=== PATIENT | male | born 1960 | race African-American/Black ===

== ENCOUNTER 2021-12-07 13:57 | Emergency (ER) | payer MEDICARE, SELFPAY ==
[2021-12-07] VITALS (15 sets, daily range): BP systolic 148–164; BP diastolic 86–97; PULSE 69–82; RESP 9–18; TEMP 36.1–36.7; O2SAT 96–100
--- NOTE | 2021-12-07 16:57 | ED.MALEGU ---
HPI - Male Genitourinary General Chief complaint: Urogenital-Male Stated complaint: urinary retention Time Seen by Provider: 12/07/21 16:40 Source: patient and family Mode of arrival: ambulatory History of Present Illness HPI Narrative: This is 61 year old male who presents for evaluation of urinary retention. Patient states he has been unable to urinate since 4 am this morning. He does not feel urge to urinate. Patient has been fasting for blood work. He denies abdominal pain, back pain, nausea, vomiting, dysuria or hematuria. He reports having issues with urinary retention several years ago. Related Data Allergies Allergy/AdvReac Type Severity Reaction Status Date / Time No Known Allergies Allergy Verified 12/07/21 14:13 Review of Systems Review of Systems: All systems reviewed & are unremarkable except as noted in HPI and below Constitutional: Constitutional: Denies chills and Denies fever(s) Cardiovascular: Cardiovascular: Denies chest pain Respiratory: Respiratory: Denies cough and Denies dyspnea Gastrointestinal: Gastrointestinal: Denies abdominal pain, Denies diarrhea, Denies nausea and Denies vomiting Genitourinary: Genitourinary: Reports oliguria and Denies urinary frequency [facility] Past Medical History Medical History (Updated 12/07/21 @ 18:35 by Camryn Corey MD) Cognitive impairment Diabetes mellitus Hyperlipidemia Hypertension Social History Social History (Updated 12/07/21 @ 17:00 by Camryn Corey MD) Smoking status: Never smoker Exam Const: General: no acute distress and alert Eyes: EOM: EOMs intact bilaterally Resp: Effort & Inspection: normal respiratory effort and no retractions Auscultation: clear to auscultation bilaterally Cardio: Rate: regular rate Rhythm: regular rhythm Heart sounds: no murmurs GI: Inspection: distended GI Palp: Yes Soft to palpation, No Tenderness to palpation present (GI) and No Guarding due to palpation present (GI) Auscultation: normal bowel sounds Neuro: General: patient oriented x3 and moves all extremities Psych: Mental Status: mental status grossly normal Affect: normal affect Course Reevaluation(s) Reevaluation #1: Patient has not eaten and drank anything today which can account for why he has not urinated since this morning. HE was only found to have 125 ml in bladder so he has not have UTI symptoms. Nursing unable to straight cath. LAbs are normal. Patient will be discharged . Date: 12/07/21 Time: 18:32 Vital Signs Vital signs: Vital Signs Temperature 97.0 F L 12/07/21 14:08 Pulse Rate 82 12/07/21 14:08 Respiratory Rate 16 12/07/21 14:08 Blood Pressure 153/86 H 12/07/21 14:08 Pulse Oximetry 96 12/07/21 14:08 Temperature 98.1 F 12/07/21 18:57 Pulse Rate 78 12/07/21 18:57 Respiratory Rate 14 12/07/21 18:57 Blood Pressure 159/91 H 12/07/21 18:57 Pulse Oximetry 100 12/07/21 18:57 MDM - Male Genitourinary Medical Records Attestation: I reviewed the patient's medical records. Lab Data Attestation: I reviewed the patient's lab results. Result diagrams: 12/07/21 17:12 12/07/21 17:12 Labs: Lab Results 12/07/21 12/07/21 Range/Units 17:12 17:12 WBC 9.4 (4.5-10.0) K/mm3 RBC 4.67 (4.6-6.20) M/mm3 Hgb 12.8 L (14.0-18.0) g/dL Hct 38.6 L (42.0-52.0) % MCV 82.7 (80-100) fl MCH 27.4 (26-34) pg MCHC 33.2 (32-36) g/dl RDW 14.7 H (11.5-14.5) % Plt Count 306 (150-375) k/mm3 MPV 10.3 (7.4-10.4) fl Immature Gran % (Auto) 0.4 (0-0.5) % Neut % (Auto) 57.7 (45.5-73.1) % Lymph % (Auto) 31.7 (18.3-44.2) % [place] % (Auto) 6.9 (2.6-8.5) % Eos % (Auto) 2.8 (0-4.4) % Baso % (Auto) 0.5 (0.2-1.2) % Lymph # (Auto) 2.98 (0.9-3.2) K/mm3 [place] # (Auto) 0.7 H (0.1-0.6) K/mm3 Eos # (Auto) 0.3 (0-0.3) K/mm3 Baso # (Auto) 0.1 (0.0-0.1) K/mm3 Abs Immat Gran (auto) 0.04 H (0.00-0.031) K
[2021-12-07 17:18] LABS: Basophils Absolute Auto 0.1 K/mm3 (0.0-0.1); Basophils Percent Auto 0.5 % (0.2-1.2); Eosinophils Absolute Auto 0.3 K/mm3 (0-0.3); Eosinophils Percent Auto 2.8 % (0-4.4); Hematocrit 38.6 % (42.0-52.0); Hemoglobin 12.8 g/dL (14.0-18.0); Immature Granulocyte Absolute 0.04 K/mm3 (0.00-0.031); Immature Granulocyte Percent A 0.4 % (0-0.5); Lymphocytes Absolute Auto 2.98 K/mm3 (0.9-3.2); Lymphocytes Percent Auto 31.7 % (18.3-44.2); Mean Corpuscular HGB Conc 33.2 g/dl (32-36); Mean Corpuscular Hemoglobin 27.4 pg (26-34); Mean Corpuscular Volume 82.7 fl (80-100); Mean Platelet Volume 10.3 fl (7.4-10.4); Monocytes Absolute Auto 0.7 K/mm3 (0.1-0.6); Monocytes Percent Auto 6.9 % (2.6-8.5); Neutrophils Absolute Auto 5.4 K/mm3 (1.3-6.7); Neutrophils Percent Auto 57.7 % (45.5-73.1); Platelet Count Result 306 k/mm3 (150-375); Red Blood Count 4.67 M/mm3 (4.6-6.20); Red Cell Distribution Width 14.7 % (11.5-14.5); White Blood Count 9.4 K/mm3 (4.5-10.0)
[2021-12-07 17:37] LABS: Alanine Aminotransferase 29 U/L (4-50); Albumin Level 4.6 g/dL (3.5-5.1); Alkaline Phosphatase 83 U/L (38-126); Anion Gap 9 mmol/L (8-16); Aspartate Amino Transferase 26 U/L (17-59); Bilirubin,Total 0.6 mg/dL (0.2-1.3); Blood Urea Nitrogen 12 mg/dL (9-20); Calcium 9.1 mg/dL (8.4-10.2); Carbon Dioxide 27 mmol/L (22-30); Chloride 105 mmol/L (98-107); Estimated CRCL calculation 79 ml/min; Estimated Glomerular Filt Rate > 60; Glucose 88 mg/dL (65-110); Potassium 3.9 mmol/L (3.4-5.0); Sodium 141 mmol/L (137-145)
--- NOTE | 2021-12-07 18:53 | PC.NURSE ---
Unable to obtain urine. Attempted 14f coude cath. EDP notiofied.
== END 2021-12-07 19:02 | disposition home or self-care (01) ==
PROVIDERS: Emergency Provider General Practice; PCP Emergency Medicine
DX: R33.9 Retention of urine, unspecified (principal); E11.9 Type 2 diabetes mellitus without complications; E78.5 Hyperlipidemia, unspecified; I10 Essential (primary) hypertension; R34 Anuria and oliguria
CPT/HCPCS: 36415; 80053; 85025; 99283

== ENCOUNTER 2021-12-15 08:40 | Outpatient (CLI) | payer MEDICARE, SELFPAY ==
--- NOTE | ~2021-12-15 | MR_ITS ---
EXAMINATION: MR brain/brain stem wo/w con EXAM DATE: 12/15/2021 11:18 INDICATION: Change in mental status. TECHNIQUE: Magnetic resonance imaging (MRI) of the brain/brain stem obtained without contrast. Sagit josué T1, axial diffusion, gradient echo (T2*), T1, T2, FLAIR sequences obtained. Patient was then inj ected with 19 cc intravenous Multihance contrast. Axial and coronal postcontrast T1 weighted sequence s obtained. There is no prior study for comparison. FINDINGS: There are no areas of restricted diffusion to suggest acute infarction. There is no acute hemorrhage seen on the T2*, a hemosiderin sensitive sequence. No intraparenchymal brain mass lesion. 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 There is moderate periventricular and subcortical T 2/FLAIR signal hyperintensity, nonspecific but probably related to small vessel ischemic disease (maya roangiopathy). There is mild prominence of the sulci and ventricles related to cerebral atrophy. There are no extra-axial collections. Flow voids are seen in the cerebral arteries on the T2-weighte d sequences consistent with their expected patency. The orbits are unremarkable. Soft tissue is unr emarkable. IMPRESSION: 1. No acute intracranial findings. 2. Chronic age related findings. Reviewed, dictated and finalized at location G.
== END 2021-12-15 08:41 | disposition home or self-care (01) ==
PROVIDERS: PCP Emergency Medicine; Visit Provider Emergency Medicine
DX: R41.82 Altered mental status, unspecified (principal)
CPT/HCPCS: 70553; A9577

== ENCOUNTER 2022-02-02 00:05 | Day surgery (SDC) | payer MEDICARE, MEDICAID, SELFPAY ==
[2022-01-20 14:44] VITALS: BMI 34.1
--- NOTE | 2022-02-01 15:01 | PC.NURSE ---
Spoke with pt mother, , regarding urological procedure tomorrow after GI procedure. Mother states pt is not going to take any medications in the morning and will not have any food or drink after midnight. Denies any questions at this time.
[2022-02-02] VITALS (13 sets, daily range): BP systolic 132–154; BP diastolic 70–93; PULSE 60–72; RESP 15–21; TEMP 36.2; O2SAT 95–100
--- NOTE | ~2022-02-02 | XR_ITS ---
EXAMINATION: XR urethrocystogram INDICATION: Ureteral dilation TECHNIQUE: Six intraoperative fluoroscopic images are submitted for review. Total fluoroscopic time w as 20.9 seconds COMPARISON: None available FINDINGS: Retrograde urethrogram demonstrates a stricture of the bulbar urethra. Subsequent images de monstrate manipulation of a ureteral scope. IMPRESSION: 1. Stricture of the bulbar urethra. Please refer to surgical note for full details. Reviewed, dictated and finalized at location A. IMPRESSION: 1. Stricture of the bulbar urethra. Please refer to surgical note for full deta ils.
--- NOTE | 2022-02-02 08:25 | ECG_ITS ---
Measurements Intervals [place] Rate: 69 P: 25 LA: 207 QRS: 221 QRSD: 101 T: 71 QT: 399 QTc: 430 Interpretive Statements SINUS RHYTHM RIGHT AXIS DEVIATION INCOMPLETE RIGHT BUNDLE BRANCH BLOCK POOR R WAVE PROGRESSION, ANTERIOR LEADS BORDERLINE T WAVE ABNORMALITY- HIGH LATERAL LEADS BORDERLINE ECG Electronically Signed On 02-02-2022 8:54:37 CDT by Benjamín Salinas D.O.
[2022-02-02] MEDS: LACTATED RINGERS 1,000 ML 150 ML IV CONT (09:10)
--- NOTE | 2022-02-02 09:17 | PM.HPGS ---
History of Present Illness History of Present Illness Consent: Risks, benefits, and alternatives have been discussed and questions answered. Patient agrees to proceed with procedure. Chief complaint: GERD, Dysphagia, Neoplasm screen, stricture, BPH Narrative: Jonathan Edmond is a 61 year old male with gerd on omeprazole, also choking after eating. Last colonoscopy 10 years ago. Review of Systems Constitutional: Constitutional: Denies headache(s) and Denies weakness Eyes: Eyes: Denies blurry vision ENT: Reports Normal hearing present, Denies headache(s) and Denies neck pain Cardiovascular: Cardiovascular: Denies chest pain and Denies dyspnea Respiratory: Respiratory: Denies dyspnea Gastrointestinal: Gastrointestinal: Reports no additional gastrointestinal complaints Genitourinary: Genitourinary: Denies dysuria Musculoskeletal: Musculoskeletal: Denies neck pain Integumentary/Breasts: Skin/Breast: Denies dry skin Neurologic: Reports Normal hearing present, Denies headache(s) and Denies weakness Psychiatric: Psychiatric: Denies anxiety Endocrine: Endocrine: Denies change in body appearance Hematologic/Lymphatic: Hematologic/Lymphatic: Denies easy bleeding Allergic/Immunologic: Allergic/Immunologic: Denies urticaria PMF Past Medical History Medical History (Updated 02/02/22 @ 09:18 by Dario Downs MD) Choking Cognitive impairment Colon cancer screening Diabetes mellitus Hyperlipidemia Hypertension Social History Social History (Updated 12/07/21 @ 17:00 by Camryn Corey MD) Smoking status: Never smoker Alcohol intake: never Substance use: never Substance use type: does not use Living arrangements: with family Additional living arrangements comments: MOTHER HELPS CARE FOR PT, PT HAS CAREGIVER 4HRS A DAY, 4 DAYS A WEEK Spiritual care concerns: No Meds Home Medications and Allergies Home Medications Medication Instructions Recorded Confirmed Type tamsulosin [Flomax] 0.4 mg PO DAILY #14 cap 12/07/21 01/20/22 Rx aspirin [Aspir-81] 81 mg PO DAILY 01/20/22 01/20/22 History atorvastatin 40 mg PO DAILY 01/20/22 01/20/22 History donepezil 5 mg PO DAILY 01/20/22 01/20/22 History losartan 100 mg PO DAILY 01/20/22 01/20/22 History metformin 500 mg PO DAILY 01/20/22 01/20/22 History omeprazole 20 mg PO DAILY 01/20/22 01/20/22 History sertraline 100 mg PO DAILY 01/20/22 01/20/22 History Allergies Allergy/AdvReac Type Severity Reaction Status Date / Time No Known Allergies Allergy Verified 02/02/22 08:47 Exam Const: General: comfortable and no acute distress HENMT: General nose exam: Normal nares present Eyes: General: appearance normal, both eyes and all related structures Neck: Neck: no JVD Resp: Auscultation: clear to auscultation bilaterally Cardio: Rate: regular rate Rhythm: regular rhythm GI: Inspection: non-distended GI Palp: Yes Soft to palpation Skin: General skin exam: normal color Neuro: General: gait normal Speech: normal speech Extrem: General: normal to inspection Psych: Mental Status: mental status grossly normal Assessment and Plan Assessment and plan (1) Choking: Code(s): T17.308A - Unspecified foreign body in larynx causing other injury, initial encounter Status: Acute Assessment and Plan: egd with bx, check if esophagitis, stricture, etc (2) Colon cancer screening: Code(s): Z12.11 - Encounter for screening for malignant neoplasm of colon Status: Acute Assessment and Plan: colonoscopy
--- NOTE | 2022-02-02 09:18 | P.PNAN_ITS ---
Anes - Initial Pre Proc Eval Procedure: Operation Date: 02/02/22 09:45 Proposed Procedures p Esophagogastroduodenoscopy & Screening Colonoscopy - Dario Yañez MD Operation Date: 02/02/22 15:30 Proposed Procedures p Cystoscopy, Bilateral Retrograde Pyelogram, Urethral Dilation - Jayson Perez MD Date/Time: 02/02/22 09:18 Surgeon: Dario Downs MD Pre Op Diagnosis: GERD, Dysphagia, Neoplasm screen, stricture, BPH Patient Data Age: 61 Gender: M Height: 1.68 m Weight: 94.7 kg Allergies Allergy/AdvReac Type Severity Reaction Status Date / Time No Known Allergies Allergy Verified 02/02/22 08:47 Home Medications Medication Instructions Recorded Confirmed Type tamsulosin [Flomax] 0.4 mg PO DAILY #14 cap 12/07/21 01/20/22 Rx aspirin [Aspir-81] 81 mg PO DAILY 01/20/22 01/20/22 History atorvastatin 40 mg PO DAILY 01/20/22 01/20/22 History donepezil 5 mg PO DAILY 01/20/22 01/20/22 History losartan 100 mg PO DAILY 01/20/22 01/20/22 History metformin 500 mg PO DAILY 01/20/22 01/20/22 History omeprazole 20 mg PO DAILY 01/20/22 01/20/22 History sertraline 100 mg PO DAILY 01/20/22 01/20/22 History Laboratory Tests 02/02/22 08:51 Sodium Pending Potassium Pending Chloride Pending Carbon Dioxide Pending Anion Gap Pending BUN Pending Creatinine Pending Estim Creat Clear Calc Pending Estimated GFR Pending Glucose Pending Calcium Pending Patient hx anesthesia problems: none Family hx anesthesia problems: none Results Review: All pre-operative results and documents have been reviewed as part of the pre-operative evaluation. [facility] Past Medical History Medical History (Updated 02/02/22 @ 09:18 by Dario Downs MD) Choking Cognitive impairment Colon cancer screening Diabetes mellitus Hyperlipidemia Hypertension Social History Social History (Updated 12/07/21 @ 17:00 by Camryn Corey MD) Smoking status: Never smoker Alcohol intake: never Substance use: never Substance use type: does not use Living arrangements: with family Additional living arrangements comments: MOTHER HELPS CARE FOR PT, PT HAS CAREGIVER 4HRS A DAY, 4 DAYS A WEEK Spiritual care concerns: No Anes - Eval Final PreProcedure Day of Procedure 02/02/22 09:18 Patient weight: obese Heart: regular rate and rhythm Lungs: clear to auscultation Airway: Mallampati scale class III Neurological: alert and oriented Last oral intake: >/= 8 hours ASA classification: III Emergent: no Anesthetic plan: proceed Anesthesia type and monitoring: general GIVS and LMA and standard monitoring Results Review: All pre-operative results and documents have been reviewed as part of the pre-operative evaluation. Informed Consent: The patient's anesthetic plan and its attendant risks and benefits were discussed with the patient/family/POA. Questions were solicited and answers provided to the satisfaction of the patient/family/POA.
--- NOTE | 2022-02-02 09:18 | SUR.PREOP ---
Patient belonging picked up by Viviana TUTTLE and brought to OR belongings locker
--- NOTE | 2022-02-02 09:25 | PM.IMHP ---
H&P: HPI History of Present Illness Date/Time: 02/02/22 09:25 Chief Complaint: Voiding dysfunction with urethral stricture Narrative: 61-year-old male who was having difficulty voiding. Has a history of what sounds to have been urethral dilation in the past. Presented to the office for evaluation. Cystoscopy revealed a bulbar urethral narrowing and patient now presents for definitive therapy. Review of Systems Review of Systems: All systems reviewed & are unremarkable except as noted in HPI and below PMFSH Past Medical History Medical History Choking Cognitive impairment Colon cancer screening Diabetes mellitus Hyperlipidemia Hypertension Social History Social History Smoking status: Never smoker Alcohol intake: never Substance use: never Substance use type: does not use Living arrangements: with family Additional living arrangements comments: MOTHER HELPS CARE FOR PT, PT HAS CAREGIVER 4HRS A DAY, 4 DAYS A WEEK Spiritual care concerns: No Meds Home Medications and Allergies Home Medications Medication Instructions Recorded Confirmed Type tamsulosin [Flomax] 0.4 mg PO DAILY #14 cap 12/07/21 01/20/22 Rx aspirin [Aspir-81] 81 mg PO DAILY 01/20/22 01/20/22 History atorvastatin 40 mg PO DAILY 01/20/22 01/20/22 History donepezil 5 mg PO DAILY 01/20/22 01/20/22 History losartan 100 mg PO DAILY 01/20/22 01/20/22 History metformin 500 mg PO DAILY 01/20/22 01/20/22 History omeprazole 20 mg PO DAILY 01/20/22 01/20/22 History sertraline 100 mg PO DAILY 01/20/22 01/20/22 History Allergies Allergy/AdvReac Type Severity Reaction Status Date / Time No Known Allergies Allergy Verified 02/02/22 08:47 Exam Const: General: cooperative and no acute distress Eyes: General: appearance normal, both eyes and all related structures Chest: Chest palpation & inspection: normal inspection of the chest Resp: Effort & Inspection: normal respiratory effort Cardio: Rate: regular rate Rhythm: regular rhythm Assessment and Plan Assessment and plan (1) Urethral stricture: Code(s): N35.919 - Unspecified urethral stricture, male, unspecified site Status: Acute Assessment and Plan: Patient will undergo retrograde urethrogram, urethral dilation, cystoscopy,
[2022-02-02 09:27] LABS: Anion Gap 9 mmol/L (8-16); Blood Urea Nitrogen 7 mg/dL (9-20); Calcium 9.6 mg/dL (8.4-10.2); Carbon Dioxide 27 mmol/L (22-30); Chloride 102 mmol/L (98-107); Estimated CRCL calculation 80 ml/min; Estimated Glomerular Filt Rate > 60; Glucose 111 mg/dL (65-110); Potassium 3.9 mmol/L (3.4-5.0); Sodium 138 mmol/L (137-145)
--- NOTE | 2022-02-02 09:27 | WPDHPUPDATE1 ---
History and Physical Update Update Date/Time: 02/02/22 09:27 History and Physical has been reviewed, including an updated exam of the patient. There are NO changes in the patient's condition. Risks, benefits, and alternatives have been discussed and questions answered. Patient agrees to proceed with procedure.
--- NOTE | 2022-02-02 09:37 | SUR.OPER ---
egd ended at 931 and colonscopy started at 936.
--- NOTE | 2022-02-02 10:10 | WPDHPUPDATE1 ---
History and Physical Update Update Date/Time: 02/02/22 10:10 History and Physical has been reviewed, including an updated exam of the patient. There are NO changes in the patient's condition. Risks, benefits, and alternatives have been discussed and questions answered. Patient agrees to proceed with procedure.
--- NOTE | 2022-02-02 10:14 | SUR.PHASEII ---
Pt to be taken to the OR for cystoscopy per stretcher.
--- NOTE | 2022-02-02 10:19 | WPDANESEFPP ---
Anes - Eval Final PreProcedure Day of Procedure 02/02/22 10:19 Patient weight: obese Heart: regular rate and rhythm Lungs: clear to auscultation Airway: Mallampati scale class III Neurological: alert and oriented Last oral intake: >/= 8 hours ASA classification: III Emergent: no Anesthetic plan: proceed Anesthesia type and monitoring: general LMA and standard monitoring Results Review: All pre-operative results and documents have been reviewed as part of the pre-operative evaluation. Informed Consent: The patient's anesthetic plan and its attendant risks and benefits were discussed with the patient/family/POA. Questions were solicited and answers provided to the satisfaction of the patient/family/POA.
--- NOTE | 2022-02-02 10:21 | SUR.PHASEII ---
Pt being transferred to OR per stretcher by BRIGIDO Ling.
[2022-02-02] MEDS: ceFAZolin SODIUM 1 GM VIAL 2 GM IV PUSH (10:38)
[2022-02-02] MEDS: LIDOCAINE HCL 2% GEL UROJET 10 ML PKG MUCOUS MEM (10:41)
--- NOTE | 2022-02-02 11:00 | W.PM.PROC2 ---
Procedure Note - Detailed Date of Procedure 02/02/22 Pre-op Diagnosis Urethral stricture Post-op Diagnosis Same Procedure Performed Patient is taken to the operative suite and correctly identified. Once anesthesia was obtained he was placed in dorsal lithotomy position and prepped and draped usual sterile fashion. Nineteen Vietnamese scope was inserted urethra. There is a stricture in the bulbar urethra which would not allow passage. At this point a retrograde urethrogram was performed using a 16 Vietnamese red rubber catheter. Contrast made its way into the bladder. We could not manipulate a guidewire into the bladder. At this point a flexible ureteral scope was used to traverse the bulbar urethral stricture. We were able to manipulate this up into the bladder. Guidewire was then placed. Using SphereUp urethral dilators we dilated up to 22 Vietnamese. Cystoscope was then inserted. He did have a fairly dense bulbar urethral stricture which extended down to the sphincter area. Prostate had minimal lateral lobes. The bladder itself had no tumors. Both ureteral orifices normal anatomic position. 2% viscous lidocaine was then inserted into the urethra. Eighteen [place] was then placed over the guidewire into the bladder. 10 cc were placed in the balloon. This was connected to gravity drainage. Patient is taken recovery stable condition. He will be discharged home with pain med and antibiotics sent to his pharmacy. Will plan on removing the Mcdonald catheter on Tuesday. Surgeon Jayson Perez MD Anesthesia General Description of Procedure See dictation under procedure Procedure performed was retrograde urethrogram, urethral dilation, cystoscopy, complex Mcdonald placement Drains Yes Packing No Pathology None sent Complications No immediate complications Condition Stable
[2022-02-02] MEDS: LACTATED RINGERS 1,000 ML 30 ML IV CONT (11:04)
[2022-02-02 11:15] LABS: Glucose Point of Care 86 mg/dl (65-105)
--- NOTE | 2022-02-02 12:43 | SUR.PHASEI ---
1205: SPOKE W/ PT'S MOTHER, AND MOHSEN PANIAGUA WHO IS ALSO THE PATIENTS MULTI SHARE PROGRAM COORDINATOR M-F UNTIL NOON. MOTHER WANTS PATIENT TO BE ADMITTED TO THE HOSPITAL OR TO A REHAB SETTING BECAUSE PT WILL BE DC'D WITH A CATHETER AND SHE STATES [SHE] CAN'T EMPTY [HIS]CATHETER . MOTHER ASSURED THAT PT WILL BE TAUGHT BASIC CATHETER CARE THAT HE CAN PERFORM, SUITED TO . HIS COGNITIVE IMPAIRMENT, HE IS ALREADY LIVING ALONE AND PERFORMS HIS OWN SELF CARE AT HOME. SPOKE TO MOHSEN PANIAGUA, WHO READILY VERBALIZED BASIC KNOWLEDGE OF EMPTYING LEG BAG AND CARE WITHOUT PROMPTING AND STATES SHE WOULD BE WILLING TO REINFORCE TEACHING DAILY SHE IS IN THE HOME BUT [SHE] NEEDS TO LEAVE AND IS OFF NOW . SHE WAS CONFIDENT THAT HER MOTHER, BYRON, WHO WAS GOING TO BE TRANSPORTATION HOME TODAY, WOULD BE WILLING TO BE PRESENT FOR TEACHING AND SHE COULD RELAY INFORMATION TO HER. PT IS A&OX3 DURING THESE CONVERATIONS IN PACU AND TEACHING OF CATHETER CARE HAS BEEN ONGOING IN THIS AREA SINCE WAKE UP. HE EXPRESSES THAT IS CONFIDENT HE CAN PERFORM CARE. PT WILL NEED CONTINUED TEACHING IN PHASE II BEFORE D'C TO RETURN-DEMONSTRATE CARE AND VERBALIZE UNDERSTANDING.
--- NOTE | 2022-02-02 14:25 | SUR.PHASEII ---
1400 - abdi catheter care demonstrated with pt. pt returned demonstration x3 without difficulty. pt's mother instructed with abdi catheter clip and how to emptying. verbalized understanding. pt also encouraged to continue with his pericare as normal once at home.
== END 2022-02-02 14:10 | disposition home or self-care (01) ==
PROVIDERS: Anesthesiology; Urology; PCP Emergency Medicine; Visit Provider Internal Medicine Gastroenterology
PROC: 0DJ08ZZ Inspection of Upper Intestinal Tract, Via Natural or Artificial Opening Endoscopic (ICD-10-PCS; CPT 43235; principal; 2022-02-02 09:45)
PROC: (CPT 52352; principal; 2022-02-02 15:30)
DX: N35.912 Unspecified bulbous urethral stricture, male (principal); Z12.11 Encounter for screening for malignant neoplasm of colon; D12.2 Benign neoplasm of ascending colon; K64.8 Other hemorrhoids; K21.9 Gastro-esophageal reflux disease without esophagitis; K44.9 Diaphragmatic hernia without obstruction or gangrene; K29.70 Gastritis, unspecified, without bleeding; R13.10 Dysphagia, unspecified; N40.0 Benign prostatic hyperplasia without lower urinary tract symptoms; I10 Essential (primary) hypertension; E11.9 Type 2 diabetes mellitus without complications; E78.5 Hyperlipidemia, unspecified; Z79.84 Long term (current) use of oral hypoglycemic drugs; Z79.82 Long term (current) use of aspirin; E66.9 Obesity, unspecified; Z68.33 Body mass index [BMI] 33.0-33.9, adult
CPT/HCPCS: 52281; 45380; 43239; 36415; 51610; 74450; 80048; 82948; 88305; 93005; C1769; J0690; J2001; J2405; J2704; J7120; Q9966

== ENCOUNTER 2022-06-01 08:48 | Outpatient (CLI) | payer MEDICARE, MEDICAID, SELFPAY ==
--- NOTE | 2022-06-01 10:41 | WPDNEUROLOGY ---
Neurology EEG Report General Information Date of Study: 06/01/22 TEST Routine EEG DIAGNOSIS Dementia CONDITION OF RECORDING Awake and Drowsy. Patient unable to relax and keep eyes from fluttering; constant eye movement artifact noted throughout tracing. EEG NUMBER [id number] CLINICAL HISTORY Patient states he has early onset dementia. He has been on meds for it about a year and his symptoms seem to be about the same as they were a year ago. EEG DESCRIPTION During the awake state with eyes closed the background consists of 8-9 Hz posterior dominant rhythm which attenuates appropriately with eye opening. The recording is continuous. No significant asymmetries of background activities are noted. With drowsiness there is was waxing and waning of the dominant rhythm with eventual replacement by a mixture of beta, alpha, and theta activity. The patient did not enter stage II sleep. There are no epileptiform discharges or seizures during this recording. Photic stimulation was performed which did not elicit any abnormal response. Significant portion of the EEG is obscured due to eye blink artifact due to eye fluttering especially in the frontal leads. The eye fluttering was did not have any epileptiform features on EEG. IMPRESSION This is a normal routine EEG recorded in awake and drowsy states, although obscured by significant eye blink artifact. There are no electrographic seizures identified, nor are there any epileptiform discharges. Please note that a normal EEG cannot exclude a seizure disorder. Clinical correlation is recommended.
== END 2022-06-01 08:49 | disposition home or self-care (01) ==
PROVIDERS: PCP Emergency Medicine; Visit Provider Psychiatry & Neurology Neurology
DX: F03.90 Unspecified dementia, unspecified severity, without behavioral disturbance, psychotic disturbance, mood disturbance, and anxiety (principal)
CPT/HCPCS: 95816

== ENCOUNTER 2025-01-14 10:48 | Outpatient (CLI) | payer MEDICARE, OTHER, SELFPAY ==
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
--- OUTSIDE RECORDS SUMMARY | 2025-01-14 12:50 | XMS_ITS | Data Portability ---
Author Organization [facility] HARESHJose Address [address] [place] [address] Care Team Providers Care Web Services Professional Name Role Phone NARGISPARIS Primary Care Provider Unavailabl e Assessment No assessment recorded. Plan of Treatment Reminders Order Date Submit Date Provider Last Modified By Organization Details Last Modified Time Details Appointments None recorded. Lab HbA1c (hemoglobi n A1c), blood 2020 021 In-Office Order, Internal Use Only DO Not Attach Compendium DO Not Attach Compendium, Do Not Delete/merge, [id number] 16:05:36 Referral physical therapist referral 2021 022 [email or web address] [facility], [address] [place] [address], [address], [place], [address], 16:02:33 gastroente rologist referral 2020 021 [email or web address] Not available 18:48:49 Procedures None recorded. Surgeries None recorded. [facility] [address] [place], [address], 2 11:20:16 CT, head, w/ contrast [facility] [address] [place], [address], 2 19:10:15 Medication Orders 8 Hour Pain Reliever 650 mg tablet,ext ended release 2021 022 [place] [address], [address], [address], [place], [place], [id number], 2 16:40:32 Tessalon Perles 100 mg capsule 2021 022 [place] [address], [address], [address], [place], [place], [id number], 2 16:40:33 albuterol sulfate HFA 90 mcg/actuat ion aerosol inhaler 2021 022 [place] [address], [address], [address], [place], [place], [id number], 16:40:32 Zithromax Z-John Paul 250 mg tablet 2020 021 [place] [address], [address], [address], [place], [place], [id number], 13:47:42 Mucinex 1,200 mg tablet, extended release 2020 021 [place] [address], [address], [address], [place], [place], [id number], 13:47:41 Tessalon Perles 100 mg capsule 2020 021 [place] [address], [address], [address], [place], [place], [id number], 1 13:47:42 ketoconazo le 2 % topical cream 2020 021 [place] [address], [address], [address], [place], [place], [id number], 10:53:46 aspirin 81 mg tablet,del ayed release 2020 [place] [address], [address], [address], [place], [place], [id number], 16:03:20 gabapentin 400 mg capsule 2020 [place] [address], [address], [address], [place], [place], [id number], 16:03:25 Mapap Arthritis Pain 650 mg tablet,ext ended release 2020 [place] [address], [address], [address], [place], [place], [id number], 16:03:23 metformin 500 mg tablet 2020 [place] [address], [address], [address], [place], [place], [id number], 16:03:19 hydralazin e 50 mg tablet 2020 [place] [address], [address], [address], [place], [place], [id number], 16:03:24 amlodipine 10 mg tablet 2020 [place] [address] [address], [address], [address], [place], [place], [id number], 16:03:22 losartan 50 mg tablet 2020 [place] [address], [address], [address], [place], [place], [id number], 16:03:26 atorvastat in 40 mg tablet 2020 [place] [address], [address], [address], [place], [place], [id number], 16:03:20 Fish Oil 340 mg-1,000 mg capsule 2020 [place] [address], [address], [address], [place], [place], [id number], 16:03:21 omeprazole 20 mg capsule,de layed release 2020 [place] [address], [address], [address], [place], [place], [id number], 16:03:22 ammonium lactate 12 % topical cream 2020 [place] [address], [address], [address], [place], [place], [id number], 10:24:49 Patient TargetsNo targets recorded. Patient Instructions Encounter Date Encounter Id Patient Instructions Last Modified By Organization Details Last Modified Time 02/09/2021 [id number] leg and ankle edema: care instructions fharry Not available 02/09/2021 10:24:20 toenail fungus: care instructions fharry Not available 02/09/2021 10:24:20 03/09/2021 [id number] A healthy lifestyle: care instructions Not available 03/09/2021 15:58:08 dash diet: care instructions Not available 03/09/2021 15:58:08 How To Lower Blood Pressure Not available 03/09/2021 15:58:08 04/29/2021 [id number] leg and ankle edema: care instructions fharry Not available 04/29/2021 10:53:20 toenail fungus: care instructions fharry Not available 04/29/2021 10:53:20 athlete's foot: care instructions fharry Not available 04/29/2021 10:53:20 10/28/2021 [id number] dash diet: care instructions Not available 10/28/2021 16:35:15 How To Lower Blood Pressure Not available 10/28/2021 16:35:15 Reason for Referral Hospitality Team Member Referral for Screening for malignant neoplasm of colon continuation of colon care Referring Physician: Paris Alexander [facility], Encounter Date: 03/09/2021 Physical Therapist Referral for Right hemiparesis Referring Physician: Paris Alexander [facility], Encounter Date: 10/28/2021 Results Created Date Observation Date Name Description Value Unit Range Abnormal Flag Note LastModifiedBy Organization Detail LastModifiedTime 03/09/20 21 03/09/2021 HbA1c (hemo globi n A1c), blood HbA1c 6.7 Not Available In-Office Order Internal Use Only DO Not Attach Compendium DO Not Attach Compendium, Do Not Delete/merge, [id number] 03/09/2021 15:28:24 Result Notes None recorded. Problems Name Problem SNOMED Code Status Onset Date Resolution Date Notes Provider Name and Address Organization Details Recorded Time Eczema 88240251 Active 2019 YAW VELA NP [address], [place], [address], [facility] 0 17:06:53 Dementia 11856424 Active 2019 YAW VELA NP [address] [place], [address], [place] [facility] 0 17:07:02 Hyperlipidemia 22761457 Active 2019 YAW VELA NP [address], [place], [address], [facility] 0 17:07:09 Essential hypertension 19237771 Active 2019 YAW VELA NP [address], [place], [address], [facility] 0 17:07:16 Gastroesophage al reflux disease without esophagitis 520698875 Active 2019 YAW VELA NP [address], [place], [address], [place] [facility] 0 17:07:24 Diabetes mellitus 70526719 Active 2019 Shirlene ALEX Valadez null, [place] - [facility] 0 12:17:05 Right hemiparesis 796137299 Active 2021 Paris Alexander MD Attn: Shari richard,[address] [place], [address], [place] [facility] 2 16:34:01 Problem Notes None recorded. Procedures Surgical History Date Name Laterality Status Provider Name and Address Organization Details Recorded Time 1 Routine Foot Care completed ALEKSANDER PEDRO, [place], [address], [place] [facility] 04/29/2021 10:00:31 1 Routine Foot Care completed ALEKSANDER PEDRO, [place], [address], [place] [facility] 02/09/2021 10:19:23 1 Routine Foot Care completed ALEKSANDER PEDRO, [place], [address], [place] [facility] 12/01/2020 10:47:32 0 Routine Foot Care completed ALEKSANDER PEDRO, [place], [address], [place] [facility] 08/15/2020 11:19:35 0 Routine Foot Care completed ALEKSANDER PEDRO, [place], [address], [place] [facility] 06/13/2020 16:43:30 operation on ganglion cyst completed MONROE PERERA, [place], [address], [place] [facility] 11/26/2019 10:13:40 incision and drainage completed MONROE PERERA, [place], [address], [place] [facility] 11/26/2019 10:14:08 Imaging Results None recorded. Procedure Notes None recorded. Medical Equipment None Reported. Allergies Allergen ID Allergen Name Allergen Category Reaction Reaction Severity Criticality Documentation Date Start Date Code Code System Note Provider Name and Address Organization Details Recorded Time 599855 lisinopri l medicatio n facial swelling moderate Not available 08/14/20192018 87499 RxNorm Not Available Not Available Not Available Medications Name Sig Start Date Stop Date Status Note LastModified by Organization Details LastModified Time multivita min tablet 05/12 completed Not Available Not Available Not Available losartan 50 mg tablet TAKE 1 TABLET BY MOUTH IN THE MORNING active Not Available Not Available No t Available amoxicill in 500 mg capsule 08/25 completed Not Available Not Available Not Available atorvasta tin 40 mg tablet TAKE 1 TABLET BY MOUTH EVERY EVENING active Not Available Not Available No t Available metformin 500 mg tablet TAKE 1 TABLET BY MOUTH TWICE A DAY active Not Available Not Available No t Available clonidine HCl 0.1 mg tablet TAKE 1 TABLET BY MOUTH TWICE A DAY 05/12 completed Not Available Not Available Not Available donepezil 5 mg tablet TAKE 1 TABLET BY MOUTH IN THE MORNING 2021 active Not Available Not Available Not Avai lable ammonium lactate 12 % lotion Apply 1 applicat ion twice a day by topical route. 12/23 completed Not Available Not Available Not Available cetirizin e 10 mg tablet TAKE 1 TABLET BY MOUTH IN THE MORNING 2020 active Not Available Not Available Not Avai lable azithromy clyde 250 mg tablet TAKE 2 TABLETS (500 MG) BY ORAL ROUTE ONCE DAILY FOR 1 DAY THEN 1 TABLET (250 MG) BY ORAL ROUTE ONCE DAILY FOR 4 DAYS active Not Available Not Available No t Available ibuprofen 800 mg tablet 12/23 completed Not Available Not Available Not Available fluconazo le 150 mg tablet 05/12 completed Not Available Not Available Not Available gabapenti n 400 mg capsule TAKE 1 CAPSULE BY MOUTH THREE TIMES A DAY WITH MEALS 2021 active Not Available Not Available Not Avai lable sertralin e 100 mg tablet TAKE 1 TABLET BY MOUTH IN THE MORNING active Not Available Not Available No t Available hydralazi ne 25 mg tablet Take 1 tablet twice a day by oral route as directed for 30 days. 04/29 completed Not Available Not Available Not Available amlodipin e 5 mg tablet Take 1 tablet every day by oral route in the morning for 30 days. 06/30 completed Not Available Not Available Not Available aspirin 81 mg tablet,de layed release TAKE 1 TABLET BY MOUTH DAILY active Not Available Not Available No t Available triamcino lone acetonide 0.1 % topical cream APPLY A THIN LAYER TO THE AFFECTED AREA(S) BY TOPICAL ROUTE 2 TIMES PER DAY 12/23 completed Not Available Not Available Not Available carbamaze pine 200 mg tablet 06/30 completed Not Available Not Available Not Available Tessalon Perles 100 mg capsule Take 1 capsule 3 times a day by oral route as directed for 15 days. 2021 active Not Available Not Available Not Avai lable amlodipin e 10 mg tablet TAKE 1 TABLET BY MOUTH DAILY 2021 active Not Available Not Available Not Avai lable promethaz ine 25 mg tablet 05/12 completed Not Available Not Available Not Available betametha sone dipropion ate 0.05 % topical cream APPLY A THIN LAYER TO THE AFFECTED AREA(S) BY TOPICAL ROUTE TWICE A DAY 05/12 completed using triamcin olone Not Available Not Available Not Available omeprazol e 20 mg capsule,d elayed release TAKE 1 CAPSULE BY MOUTH EVERY MORNING 2021 active Not Available Not Available Not Avai lable folic acid 1 mg tablet 05/12 completed Not Available Not Available Not Available ammonium lactate 12 % topical cream Apply 1 applicat ion twice a day by topical route for 30 days. 2020 active Not Available Not Available Not Avai lable bisacodyl 5 mg tablet,de layed release At 2:00 PM the day before the colonosc opy, take all 4 tablets of Dulcolax by mouth at one time with 8 ounces of water active Not Available Not Available No t Available hydralazi ne 50 mg tablet TAKE 1 TABLET BY MOUTH TWICE A DAY active Not Available Not Available No t Available alcohol swabs active Not Available Not Available Not Available hydrochlo rothiazid e 25 mg tablet 04/29 completed Not Available Not Available Not Available mirtazapi ne 15 mg tablet TAKE 1 TABLET BY MOUTH AT BEDTIME 05/17/ 2022 active Not Available Not Available Not Avai lable polyethyl prabhu glycol 3350 17 gram/dose oral powder In a pitcher, mix entire bottle of Miralax in one 64 ounce bottle of yellow, white or green Gatorade . Beginnin g at 5:00 PM the evening before the colonosc opy, drink 1 8-ounce glass every 15 minutes until complete d. Drink 4 glasses of water after finishin g this mixture active Not Available Not Available No t Available albuterol sulfate HFA 90 mcg/actua tion aerosol inhaler INHALE 2 PUFFS BY MOUTH EVERY FOUR HOURS DIRECTED active Not Available Not Available No t Available ketoconaz ole 2 % topical cream APPLY TO THE AFFECTED AREA(S) BY TOPICAL ROUTE ONCE DAILY active Not Available Not Available No t Available fluticaso ne propionat e 50 mcg/actua tion nasal spray,peri pension 05/12 completed Not Available Not Available Not Available sertralin e 50 mg tablet active Not Available Not Available Not Available metoclopr amide 10 mg tablet 05/12 completed Not Available Not Available Not Available hydroxyzi ne pamoate 25 mg capsule 05/12 completed Not Available Not Available Not Available azithromy clyde 500 mg tablet 04/29 completed Not Available Not Available Not Available 8 Hour Pain Reliever 650 mg tablet,ex tended release TAKE 2 TABLETS BY MOUTH EVERY 8 HOURS WITH MEALS 2021 active Not Available Not Available Not Avai lable Fish Oil 340 mg-1,000 mg capsule TAKE 1 CAPSULE BY MOUTH EVERY MORNING 2020 active Not Available Not Available Not Avai lable peg 3350 240 gram-elec trolytes 22.72 gram-6.72 g-5.84 g powdr for soln Beginnin g at 5:00 PM the night before the colonosc opy, drink 8 ounces every 15 minutes until gone. 12/23 completed Not Available Not Available Not Available Mucinex 1,200 mg tablet, extended release Take 1 tablet every day by oral route in the morning for 30 days. 2020 active Not Available Not Available Not Avai lable GaviLyte- G 236 gram-22.7 4 gram-6.74 gram-5.86 gram oral solution 05/22 completed Not Available Not Available Not Available OneTouch Verio test strips Take 1 strip every day by miscell. route in the morning for 100 days. active Not Available Not Available No t Available OneTouch Verio Flex Meter 06/02 completed Not Available Not Available Not Available Fish Oil 1,000 mg (120 mg-180 mg) capsule Take 1 capsule every day by oral route in the morning for 30 days. 04/29 completed Not Available Not Available Not Available [place] 200 mg-300 mg-100 mg-1,000 mg capsule TAKE 1 CAPSULE BY MOUTH EVERY MORNING 12/23 completed Not Available Not Available Not Available OneTouch Delica Plus Lancet 33 gauge active Not Available Not Available Not Available Vitals Date Recorded Body height Body mass index (BMI) Body weight Heart rate Body temperature Systolic blood pressure Diastolic blood pressure Provider Name and Address Organization Details Last Updated DateTime 1 165.1 cm 37 kg/m2 294103. 66 g 86 /min 97.7 [degF] 130 mm[Hg] 84 mm[Hg] Jhoana Myers LPN [place] - [facility] 1 10:00:49 Date Recorded Body height Body mass index (BMI) Body weight Oxygen saturation Oxygen saturation in Arterial blood by Pulse oximetry Heart rate Respiratory rate Body temperature Systolic blood pressure Diastolic blood pressure Provider Name and Address Organization Details Last Updated DateTime 1 165.1 cm 38 kg/m2 231888. 16 g 94 % 94 % 93 /min 18 /min 97.2 [degF] 136 mm[Hg] 82 mm[Hg] Shirlene Valadez [place] - [facility] 1 15:22:17 Date Recorded Body height Body mass index (BMI) Body weight Body temperature Pain severity - 0-10 verbal numeric rating [Score] - Reported Heart rate Systolic blood pressure Diastolic blood pressure Provider Name and Address Organization Details Last Updated DateTime 1 165.1 cm 36.8 kg/m2 090799. 63 g 97.5 [degF] 0 85 /min 138 mm[Hg] 90 mm[Hg] Jhoana Myers LPN [place] [facility] 09:51:18 Date Recorded Body height Provider Name an d Address Organization Details Last Updated DateTime 06/02/2021 165.1 cm Shirlene Valadez [place] - [facility] 021 13:27:21 Social History Question Answer Notes LastModified by Organizat ion Details LastModified Time Tobacco Smoking Status Former Smoker quit 1999 YAW VELA NP [address] [place], [address], [facility] 11/26/2019 10:12:34 Do You Have An Advance Directive? No Information not available 11/12/2020 What Is Your Level Of Alcohol Consumption? None Information not available 11/26/2019 Are You Blind Or Do You Have Difficulty Seeing? Yes GLASSES Information not available 03/09/2021 What Is Your Level Of Caffeine Consumption? Occasional Information not available 11/12/2020 How Much Tobacco Do You Chew? None Information not available 11/26/2019 In The 14 Days Before Symptom Onset, Have You Had Close Contact With A Laboratory-confir med COVID-19 While That Case Was Ill? No Information not available 11/12/2020 In The 14 Days Before Symptom Onset, Have You Had Close Contact With A Person Who Is Under Investigation For COVID-19 While That Person Was Ill? No Information not available 11/12/2020 Have You Been To An Area Known To Be High Risk For COVID-19? No Information not available 11/12/2020 Are You Currently Employed? No Information not available 11/12/2020 Are You Deaf Or Do You Have Serious Difficulty Hearing? No Information not available 03/09/2021 What Type Of Diet Are You Following? REGULAR Information not available 11/12/2020 Which Illicit Or Recreational Drugs Have You Used? Denies Information not available 11/26/2019 Do You Or Have You Ever Used E-cigarettes Or Vape? Never Used Electronic Cigarettes Information not available 08/14/2019 Are There Any Guns Present In Your Home? No Information not available 11/12/2020 Hard Of Hearing Or Deaf In One Or Both Ears? No Information not available 11/26/2019 Legally Blind In One Or Both Eyes? No Information no t available 11/26/2019 What Was The Date Of Your Most Recent Tobacco Screening? 12/23/2020 [email or web address] Information not available 12/23/2020 What Is Your Current Pack Years? 20-29packyear s Information not available 03/09/2021 What Is Your Relationship Status? Single Information not available 11/12/2020 Do You Use Your Seat Belt Or Car Seat Routinely? Yes Information not available 11/12/2020 Do You Have Smoke And Carbon Monoxide Detectors In Your Home? Yes Information not available 11/12/2020 At What Age Did You Start Smoking Tobacco? 17 Information not available 03/09/2021 Are You Passively Exposed To Smoke? No Information no t available 11/12/2020 Do You Or Have You Ever Used Smokeless Tobacco? Never Used Smokeless Tobacco Information not available 08/14/2019 How Much Tobacco Do You Smoke? No Information not available 08/14/2019 Do You Feel Stressed (tense, Restless, Nervous, Or Anxious, Or Unable To Sleep At Night)? [id number] Information not available 11/12/2020 Do You Use Any Illicit Or Recreational Drugs? No Information not available 11/12/2020 Do You Use Sunscreen Routinely? No Information not available 11/12/2020 Has Tobacco Cessation Counseling Been Provided? Yes Information not available 03/09/2021 On What Date Was Tobacco Cessation Counseling Provided? 08/14/2019 Information not available 08/14/2019 How Many Years Have You Smoked Tobacco? 10 Information not available 08/14/2019 Do You Or Have You Ever Used Any Other Forms Of Tobacco Or Nicotine? Yes Information not available 11/12/2020 Sex: Male Functional Status Question Answer Note LastModified by Organizat ion Details LastModified Time Are you able to care for yourself? No Information not available 11/12/2020 What is your exercise level? Occasional Information not available 11/12/2020 Mental Status None recorded. Family History Relationship Description Onset Age of this Age Resolved Age Notes LastModified by Organization Details LastModified Time Mother Essential hypertension [email or web address] Not available 10/2019 10:11:41 Father Myocardial infarction 50 rloar Not available 11/25 10:12:02 Medical History Condition Response Coronary Artery Disease N Gout N Other N Atrial Fibrillation N High Blood Pressure Y Kidney Stones N Hyperthyroidism N Hypothyroidism N Blood Clots N COPD N Depression N Diverticulitis/Diverticulosis N Anxiety Disorder N Muscle, Joint, or Bone Problems N Arthritis N Acid Reflux (GERD) Y Cancer N Stroke N ADHD N High Cholesterol N Liver Disease N Schizophrenia N Headaches N Kidney Disease N Thyroid Problems N Kidney or Bladder Problems N GI Problems N Eating Disorder N Skin Problems Y Osteoporosis/Osteopenia N Anemia N Colon Polyps Y Heart Attack ([place]) N Diabetes Y Bleeding Disorder N Seizures/Epilepsy N Tuberculosis N Hyperlipidemia Y Asthma N Allergies N Substance Abuse N Sleep Apnea N GERD/Reflux Y Hepatitis N Cirrhosis N Hypertension Y Heart Failure N Osteoporosis N Immunizations Vaccine Type Date Status Note Provider Nam e and Address Organization Details Recorded Time COVID-19, mRNA, LNP-S, PF, 100 mcg/0.5mL dose or 50 mcg/0.25mL dose 01/08/2021 completed Jarrett Quinonez RN null, [place] [facility] 01/08/2021 12:24:16 COVID-19, mRNA, LNP-S, PF, 100 mcg/0.5mL dose or 50 mcg/0.25mL dose 02/05/2021 completed Sharda Goodwin MA [facility], [place] - [facility] 02/05/2021 12:01:47 Past Encounters Encounter ID Performer Location Encounter Start Date Encounter Closed Date Diagnosis/Indication Diagnosis SNOMED-CT Code Diagnosis ICD10 Code Diagnosis Note [id number] Paris Alexander MD [address] [address] 08/14/2019 13:23:07 08/15/2019 09:05:39 Adult health examination 957362475 Z00.00 Essential hypertension 57487654 I10 Rhinitis 88818555 J00 Gastroesop hageal reflux disease without esophagitis 696535122 K21.9 [id number] Paris Alexander MD [address] [address] 11/06/2019 12:30:26 11/07/2019 08:19:03 Eczema 60864725 L30.9 Acute bronchitis 0034538 2 J20.9 Dementia 16135810 F03.90 aricept 5 mg daily, life modificati ons with pill box reminder, assistance at office visits and transportt ion Hyperlipidemia 95001987 E78.5 Essential hypertension 33588989 I10 Gastroesop hageal reflux disease without esophagitis 028538245 K21.9 [id number] YAW VELA NP [facility] [address] [place] [address] 11/26/2019 09:27:17 12/07/2019 08:27:07 Screening for malignant neoplasm of colon 828174320 Z12.11 History of colon polyps, unknown typeNo PMH or FH of cancer, including colon cancer Essential hypertension 79237744 I10 Adequately controlled Managed in primary care Gastroesop hageal reflux disease without esophagitis 808884669 K21.9 Adequately controlled Managed in primary care [id number] Paris Alexander MD [address] [address] 03/25/2020 15:02:23 03/26/2020 07:01:22 Essential hypertension 26504380 I10 uncontroll ed, will add hydralazin e 25 mg BID and cardiology evaluation . with 2 week follow up for BP readings. : BP kit ordered, staff to follow up and ensure delivery , referral to cardiologi st. Hyperlipidemia 23731452 E78.5 Dementia 27582758 F03.90 aricept 5 mg daily, life modificati ons with pill box reminder, assistance at office visits and transporta tion, seeing psychiatry Gastroesop hageal reflux disease without esophagitis 647757163 K21.9 Seasonal allergy 6286649 04 J30.2 Pain of le ft shoulder joint 2842288256 2140720 M25.715 [id number] Shirlene Valadez MA [address] [address] 04/29/2020 10:05:36 04/30/2020 07:01:32 Screening for malignant neoplasm of colon 583007191 Z12.11 reschedule d appt with gastroente rologistBryan. Type 2 courtney betes mellitus 88838523 E11.65 started on metformin, has 2 month supply, and will order glucometer . Essential hypertension 64561215 I10 Improved control, Today's Blood pressure is 134/82, seen by cardiologi st and BP meds are Amlodipion e and losartan only, D/c'd HCTZ. Clonidine, and Hydralazin e Osteoarthritis 656900867 M19.90 left shoulder, ordered Xray at [facility] and will continue tylenol arthritis, until results seen [id number] Paris Alexander MD [address] [address] 05/12/2020 10:15:38 05/13/2020 08:20:36 Type 2 diabetes mellitus 10295830 E11.65 started on metformin, has 2 month supply, and has home glucometer . labs reordered to [facility] and copy of request sent to facility. Pain of le ft shoulder joint 5172454378 0456094 M25.512 Essential hypertension 55148215 I10 Improved control, Today's Blood pressure is 127/76, seen by cardiologi and BP meds are Amlodipion e and losartan only, D/c'd HCTZ. Clonidine, and Hydralazin e.copy of med list and visit summary faxed to home facility Dementia 86740022 F03.90 aricept 5 mg daily, life modificati ons with pill box reminder, assistance at office visits and transporta tion, seeing psychiatry Screening for malignant neoplasm of colon 273783624 Z12.11 reschedule d appt with gastroente rologistBryan. Will hold off on Cologuard until after visit with gastroente rologist. Eczema 96981335 L30.9 [id number] GIRMA VALDIVIA DPM [facility] [address] [place] [address] 06/13/2020 14:44:59 06/16/2020 15:56:53 Neuropathy due to diabetes mellitus 331180518 E11.42 Bilateral atherosclerosis of arteries of lower limbs 2965655384 9776964 I70.203 Edema of l ower extremity 641076508 R60.0 Onychomycosis 656679117 B35.1 [place] - lesion 144081441 L84 Pain in left foot 032439 4390 02677 M79.894 [id number] YAW VELA NP [facility] [address] [place] [address] 06/30/2020 12:32:37 07/02/2020 08:35:22 Essential hypertension 37672630 I10 Adequately controlled Managed in primary care Gastroesop hageal reflux disease without esophagitis 491595964 K21.9 Adequately controlled Managed in primary care History of polyp of colon 017140263 Z86.010 Surveillan ce colonoscop yHistory of colon polyps, unknown typeNo PMH or FH of cancer, including colon cancerNo Cologuards due to history of colon polyps [id number] Paris Alexander MD [address] [address] 07/28/2020 10:04:14 07/29/2020 08:45:48 Diabetes mellitus 04625584 E13.65 PATIENT EDUCATED ON NEED FOR HEALTHY FOOD CHOICES, WILL SCHEDULE WITH WATCH GUARD GATE AND DIETITIAN . patient scheduled for in office annual exam in TIENT REFUSE INFLUENZA AND PNEUMOVAX HAS COMPLETED HIS DIABETIC FOOT EXAM AND EYE EXAM IS SCHEDULED PER NURSING STAFF. Essential hypertension 79510131 I10 Improved control, Today's Blood pressure is 137/85, seen by cardiologi and BP meds are Amlodipion e and losartan only, D/c'd HCTZ. Clonidine, and Hydralazin e.copy of med list and visit summary faxed to home facility Hyperlipidemia 08013299 E78.5 stable Pain of le ft shoulder joint 7177177685 9879548 M25.330 [id number] GIRMA VALDIVIA DPM [facility] [address] [place] [address] 08/15/2020 10:33:11 08/18/2020 11:50:20 Neuropathy due to diabetes mellitus 050316012 E11.42 Bilateral atherosclerosis of arteries of lower limbs 6433676180 9111874 I70.203 Edema of l ower extremity 126700096 R60.0 Onychomycosis 471389346 B35.1 [place] - lesion 664098216 L84 Pain in left foot 501879 0298 37554 M79.672 Acquired h ammer toe of left foot 7876444760 293439 M20.42 Acquired h ammer toe of right foot 1641051317 074336 M20.41 Xerosis du e to atopic dermatitis 680381649 L85.3 Anhidrosis 67330335 L74. 4 [id number] Clara Allison MD [facility] [address] [place] [address] 08/25/2020 14:57:00 08/25/2020 16:50:42 Type 2 diabetes mellitus without complication 696908696 E11.9 Occlusion of branch of retinal vein of right eye 499300356 H34.8312 [id number] GIRMA VALDIVIA DPM [facility] [address] [place] [address] 08/29/2020 11:17:20 08/29/2020 12:11:13 Neuropathy due to diabetes mellitus 773754186 E11.42 Bilateral atherosclerosis of arteries of lower limbs 8288555356 3138601 I70.203 Edema of l ower extremity 522627786 R60.0 Onychomycosis 529257373 B35.1 [place] - lesion 169756781 L84 Pain in left foot 205315 5411 73995 M79.672 Acquired h ammer toe of left foot 0651010147 208804 M20.42 Acquired h ammer toe of right foot 0961420855 218023 M20.41 Xerosis du e to atopic dermatitis 063088202 L85.3 Anhidrosis 73764617 L74. 4 [id number] GIRMA VALDIVIA DPM [facility] [address] [place] [address] 08/29/2020 12:37:01 09/01/2020 15:57:53 Neuropathy due to diabetes mellitus 067532599 E11.42 Bilateral atherosclerosis of arteries of lower limbs 5786243407 2245710 I70.203 Edema of l ower extremity 866251952 R60.0 Onychomycosis 170027570 B35.1 [place] - lesion 098759353 L84 Pain in left foot 098574 3446 89357 M79.672 Acquired h ammer toe of left foot 9016396292 964695 M20.42 Acquired h ammer toe of right foot 4132661552 634245 M20.41 Xerosis du e to atopic dermatitis 324808252 L85.3 Anhidrosis 07063512 L74. 4 [id number] Paris Alexander MD [address] [address] 11/12/2020 14:36:19 11/13/2020 10:10:32 Diabetes mellitus 50906972 E13.65 PATIENT EDUCATED ON NEED FOR HEALTHY FOOD CHOICES, WILL SCHEDULE WITH WATCH GUARD GATE AND DIETITIAN . patient scheduled for in office annual exam in NT REFUSE INFLUENZA AND PNEUMOVAX HAS COMPLETED HIS DIABETIC FOOT EXAM AND EYE EXAM . Dementia 45894025 F03.90 aricept 5 mg daily, life modificati ons with pill box reminder, assistance at office visits and transporta tion, seeing psychiatry Bilateral atherosclerosis of arteries of lower limbs 5536320638 6779211 I70.203 Essential hypertension 56147137 I10 UNCONTROLL ED, Today's Blood pressure is 160/99, seen by cardiologi and BP meds are AmlodipINE and losartan. RESTARTED HYDRALAZIN Ecopy of med list and visit summary faxed to home facility Pain of le ft shoulder joint 3163114215 3516677 M25.512 Hyperlipidemia 18773343 E78.5 stable [id number] GIRMA VALDIVIA DPM [facility] [address] [place] [address] 12/01/2020 10:15:36 12/02/2020 10:43:06 Neuropathy due to diabetes mellitus 017007328 E11.42 Bilateral atherosclerosis of arteries of lower limbs 7870337907 0409157 I70.203 Edema of l ower extremity 718060951 R60.0 Onychomycosis 386698402 B35.1 [place] - lesion 383607351 L84 Pain in left foot 145478 2616 53120 M79.672 Acquired h ammer toe of left foot 0477159234 684602 M20.42 Acquired h ammer toe of right foot 7120274472 371371 M20.41 Xerosis du e to atopic dermatitis 037901676 L85.3 Anhidrosis 96429054 L74. 4 [id number] YAW VELA NP [facility] [address] [place] [address] 12/23/2020 13:20:51 12/26/2020 12:54:08 History of polyp of colon 241716675 Z86.010 Surveillan ce colonoscop yHistory of colon polyps, unknown typeNo PMH or FH of cancer, including colon cancerNo Cologuards due to history of colon polyps Dementia 76971253 F03.90 On donepezil, mertazapin e, sertraline Diabetes mellitus 124114 09 E11.9 11/17/2020: A1C 6.6% Managed in primary care Taking metformin Essential hypertension 25347005 I10 Adequately controlled On amlodipine , hydralazin e, losartan Managed in primary care Gastroesop hageal reflux disease without esophagitis 003995495 K21.9 Adequately controlled Managed in primary care On omeprazole Hyperlipidemia 68332930 E78.5 Managed in primary care On atorvastat in [id number] Paris Alexander MD [address] [address] 12/31/2020 14:25:41 01/01/2021 14:24:44 Essential hypertension 04172523 I10 improved control Today's Blood pressure is 150/85 , seen by cardiologi and BP meds are AmlodipINE and losartan. RESTARTED HYDRALAZIN E copy of med list and visit summary faxed to home facility Type 2 courtney betes mellitus 39478528 E11.65 started on metformin, has 2 month supply, and has home glucometer . labs reordered to [facility] and copy of request sent to facility. -follow up in office in 2 months for annual in office exam Bilateral atherosclerosis of arteries of lower limbs 2099157392 2412538 I70.203 Hyperlipidemia 19601401 E78.5 stable Pain of le ft shoulder joint 6466266858 5663890 M25.512 Seasonal allergy 4136207 04 J30.2 [id number] Jarrett Quinonez RN [facility] [address] [place] [address] 01/08/2021 11:38:20 01/09/2021 10:54:43 Administration of SARS-CoV-2 antigen vaccine 163618467 Z23 [id number] Gaurav Norris [facility] [address] [place] [address] 02/05/2021 10:41:11 02/16/2021 18:23:17 Administration of SARS-CoV-2 antigen vaccine 960702479 Z23 [id number] GIRMA VALDIVIA DPM [facility] [address] [place] [address] 02/09/2021 09:35:41 02/11/2021 14:27:00 Neuropathy due to diabetes mellitus 595457032 E11.42 Bilateral atherosclerosis of arteries of lower limbs 0179337870 9256277 I70.203 Edema of l ower extremity 281062769 R60.0 Onychomycosis 536515633 B35.1 [place] - lesion 766193224 L84 Pain in left foot 268774 6204 06192 M79.672 Acquired h ammer toe of left foot 2782973948 412669 M20.42 Acquired h ammer toe of right foot 5976497838 379491 M20.41 Xerosis du e to atopic dermatitis 349519325 L85.3 Anhidrosis 44493128 L74. 4 [id number] Paris Alexander MD [address] [address] 03/09/2021 14:59:19 03/12/2021 09:58:05 Type 2 diabetes mellitus 31334720 E11.65 well controlled , HgA1c is 6.7 continue current meds Essential hypertension 08733731 I10 improved control Today's Blood pressure is 136/82 , seen by cardiologi and BP meds are AmlodipINE and losartan. RESTARTED HYDRALAZIN E Obesity 381073938 E66.9 Screening for malignant neoplasm of colon 619456976 Z12.11 reschedule d appt with gastroente rologistBryan. . Bilateral atherosclerosis of arteries of lower limbs 0151305098 0396723 I70.203 Hyperlipidemia 83429200 E78.5 stable Pain of le ft shoulder joint 0704812532 5283823 M25.391 [id number] GIRMA VALDIVIA DPM [facility] [address] [place] [address] 04/29/2021 08:43:30 04/29/2021 15:30:13 Neuropathy due to diabetes mellitus 386205183 E11.42 Bilateral atherosclerosis of arteries of lower limbs 3518461420 6235784 I70.203 Edema of l ower extremity 577440123 R60.0 Onychomycosis 040672925 B35.1 [place] - lesion 256083940 L84 Pain in left foot 089091 6868 34907 M79.672 Acquired h ammer toe of left foot 1043966467 351013 M20.42 Acquired h ammer toe of right foot 2608250672 713027 M20.41 Xerosis du e to atopic dermatitis 445496073 L85.3 Anhidrosis 93398238 L74. 4 Tinea pedis 7227543 B35. 3 [id number] Paris Alexander MD [address] [address] 06/02/2021 09:50:18 06/03/2021 20:21:44 Acute bronchitis 42223571 J20.9 [id number] Paris Alexander MD [address] [address] 10/28/2021 11:22:36 10/31/2021 13:45:28 Dysphagia 36050301 R13.10 Essential hypertension 58560675 I10 improved control Today's Blood pressure is 136/82 , seen by cardiologi and BP meds are AmlodipINE and losartan. RESTARTED HYDRALAZIN E Right hemiparesis 645600 009 G81.90 Mild inter mittent asthma 180195136 J45.20 Renewal of prescription 967154570 Z76.0 Acute bronchitis 3018398 2 J20.9 Health Concerns Section Related Observation LastModified by Organization Detai ls LastModified Time None Recorded Concern Status LastModified by Organization Details LastModified Time None Recorded Advance Directives Directive N: Payers Encounter Date Sequence Insurance Name Policy Number Policy Hamm Covered Member ID Hamm Member ID Guarantor Name 02/09/2021 1 [employer] (MEDICAID HMO) [id number] Unton Boarden [id number] Un[employer] 03/09/2021 1 [employer] (MEDICAID HMO) [id number] Unton Boarden [id number] Unton Boarden 04/29/2021 1 [facility] (MEDICAID H[facility]) [id number] Unton Boarden [id number] Unton Boarden 06/02/2021 1 [employer] [facility] (MEDICAID HMO) [id number] Unton Boarden [id number] Unton Boarden 10/28/2021 2 [place] WHEN MEDICARE OR MEDICARE REPLACEMENT PRIMARY) Unton Boarden [id number] Unton Boarden 10/28/2021 1 [place] Unton R [place]en [id number] Jonathan Edmond Notes Date Note Type Note Provider Name and Address Organization Details Recorded Time 02/09/2021 text/html Patient presents today for evaluation and treatment of nail deformities as well as generalized foot care. The patient states their nails are uncomfortable. The patient has been unable to provide self care due to the severe nature of the deformity and their medical condition(s). The patient is receiving medically necessary foot care in order to prevent further problems as well as to relieve irritation and discomfort. Patient relates a history of diabetes and cannot recall last blood glucose. GIRMA VALDIVIA DPM [address] [place], [address], [facility] [place] 02/09/2021 10:25:23 03/09/2021 text/html Patient is a 60 year old male with known developmental delay and hypertension with diabetes, He is taking all meds as directed and denies chest pain, dizziness or dyspnea Paris Alexander MD Attn: [address]ing[address] [place], [address], [facility] 03/09/2021 16:03:50 04/29/2021 text/html Patient presents today for evaluation and treatment of nail deformities as well as generalized foot care. The patient states their nails are uncomfortable. The patient has been unable to provide self care due to the severe nature of the deformity and their medical condition(s). The patient is receiving medically necessary foot care in order to prevent further problems as well as to relieve irritation and discomfort. Patient relates a history of diabetes and cannot recall last blood glucose. GIRMA VALDIVIA DPM [address] [place], [address], [facility] 04/29/2021 10:54:10 06/02/2021 text/html patient is a 60 year old male with cough and congestion and need meds. unable to take OTC meds. no fever and no loss of smell or taste and vacinnated against COVID Paris Alexander MD Attn: [address] [place], [address], [facility] 06/02/2021 13:47:06 10/28/2021 text/html patient is a 61 year old male with dementia with behavioral disturbance with known hypertension and noted increased weakness on right side with incontinence and dysphagia. symptoms have lasted 3 weeks. Paris Alexander MD Attn: Accounting[address] [place], [address], [place] [facility] 10/28/2021 16:40:23
--- OUTSIDE RECORDS SUMMARY | 2025-01-14 12:50 | XMS_ITS | CONTINUITY OF CARE DOCUMENT ---
Author Name stephany hammond Address Unknown Organization [facility] Address [address] [place] [address] Phone [phone] Care Team Providers Care Supervisor Spring Up Name Role Phone stephany hammond Unavailable Unavailable INSURANCE PROVIDERS Payer name Policy type / Coverage type Leon red green party ID [id number] PAY [id number]
--- OUTSIDE RECORDS SUMMARY | 2025-01-14 12:50 | XMS_ITS | Clinical Summary ---
Author Organization [facility] Address [address] [place] [address] Care Team Providers Care Ultimate Hoops Scoreboard Operator Name Role Phone Lesley Cagle MD Primary Care Provider [phone] Source Comments [facility],non-owned Affiliates and Associated Physician Practices is amultiple site organization consisting of ambulatory clinics and hospital sitesin [place], [place], [place] and [place]. This disclosure is being madepursuant to the Care Everywhere program and may not contain all information available regarding this patient. Last updated 18.[facility] Allergies No known active allergies Medications * Be aware that medications may not be up to date on this document. Alwaysverify current medications with the patient. hydrocodone-acet aminophen (NORCO) 5-325 MG tablet Take 1-2 Tabs by mouth every 4 hours as needed for Pain 30 Tab 0 09/15/2015 Active Social History Tobacco Use Types Packs/Day Years Used Date Smoking Tobacco: Former Cigarettes Q uit: 02/12/2015 Smokeless Tobacco: Never Alcohol Use Standard Drinks/Week Comments No 0 (1 standard drink = 0.6 oz pur e alcohol) Sex and Gender Information Value Date Recorded Sex Assigned at Not on file Legal Sex Male 11:34 AM TOOL AND DIE MACHINIST Gender Identity Not on file Sexual Orientation Not on file Last Filed Vital Signs Vital Sign Reading Time Taken Comments Blood Pressure 138/95 09/15/2015 12:01 PM TOOL AND DIE MACHINIST Pulse 81 09/15/2015 12:01 PM TOOL AND DIE MACHINIST Temperature 36.9 C (98.4 F) 09/15/2015 10:02 AM TOOL AND DIE MACHINIST Respiratory Rate 16 09/15/2015 12:01 PM TOOL AND DIE MACHINIST Oxygen Saturation 100% 09/15/2015 12:01 PM TOOL AND DIE MACHINIST Inhaled Oxygen Concentration - - Weight 93.4 kg (206 lb) 09/15/2015 10:02 AM TOOL AND DIE MACHINIST Height 165.1 cm (5' 5 ) 09/15/2015 10:02 AM TOOL AND DIE MACHINIST Body Mass Index 34.28 09/15/2015 10:02 AM TOOL AND DIE MACHINIST Plan of Treatment Health Maintenance Due Date Last Done Comments COLOGUARD (AGES 45-75) - COL ON CA SCREENING 1960 CT COLONOGRAPHY - COLON CA SCREENING 1960 FIT - COLON CA SCREENING 1960 FLEX SIG - COLON CA SCREENING 1959 LIPID TESTING 1959 HIV SCREENING 1974 HEPATITIS C SCREENING 09/30/1977 DTAP/TDAP/TD VACCINES (1 - Tdap) 1978 PNEUMOCOCCAL VACCINE 50+ (1 of 1 - PCV) 2009 ZOSTER VACCINE (1 of 2) 2009 COVID-19 VACCINE ( - 2023-2 5 season) 2024 DEPRESSION SCREENING 09/26/2024 AAA SCREENING 2024 INFLUENZA VACCINE (Season Ended) 2025 COLON MONITORING 08/27/2025 08/27/2015, 08/27/2015, 08/27/2015 COLONOSCOPY - COLON CA SCREENING 08/27/2025 08/27/2015, 08/27/2015, 08/27/2015 Colorectal Cancer Screening 08/27/2025 Respiratory Syncytial Virus (RSV) Vaccine Pt: or over 60 yrs (1 - 1-dose 75+ series) 2034 HEPATITIS B VACCINE Aged Out No longe r eligible based on patient's age to complete this topic HIB VACCINE Aged Out No longer eligi ble based on patient's age to complete this topic HPV VACCINE Aged Out No longer eligi ble based on patient's age to complete this topic MENINGOCOCCAL (Group B) VACCINE SHARED DECISION-MAKING Aged Out No longer eligible based on patient's age to complete this topic MENINGOCOCCAL GROUPS A/C/Y/W VACCINE Aged Out No longer eligible b ased on patient's age to complete this topic Procedures Procedure Name Priority Date/Time Associated Diagnosis Comments ENDOSCOPY, COLON, SCREENING Routine 08/27/2015 10:25 AM TOOL AND DIE MACHINIST from Last 3 Months or Most Recently Relevant to Health Maintenance Results * ENDOSCOPY, COLON, SCREENING (08/27/2015 10:25 AM TOOL AND DIE MACHINIST) Report Endoscopy POC _ Patient Name: Bryan Rodríguez Procedure Date: 08/27/2015 10:25 AM Date of : 1960 Admit Type: Outpatient Age: 54 Gender: Male Attending MD: Kal Peralta MD _ Procedure: Colonoscopy Indications: Screening for colorectal malignant neoplasm Providers: Kal Peralta MD (Doctor), Theresa Mc RN, Ritu Sharma, Tractor Expert Referring MD: Lesley Cagle MD (Referring MD) Medicines: Midazolam 5 mg IV, Meperidine 75 mg IV Complications: No immediate complications. _ Procedure: Pre-Anesthesia Assessment: - Prior to the procedure, a History and Physical was performed, and patient medications and allergies were reviewed. The patient is competent. The risks and benefits of the procedure and the sedation options and risks were discussed with the patient. All questions were answered and informed consent was obtained. Patient identification and proposed procedure were verified by the physician, the nurse and the mechanical maintenance technician in the procedure room. Mental Status Examination: alert and oriented. Airway Examination: normal oropharyngeal airway and neck mobility. Respiratory Examination: clear to auscultation. CV Examination: normal. Prophylactic Antibiotics: The patient does not require prophylactic antibiotics. Prior Anticoagulants: The patient has taken no previous anticoagulant or antiplatelet agents. ASA Grade Assessment: I - A normal, healthy patient. After reviewing the risks and benefits, the patient was deemed in satisfactory condition to undergo the procedure. The anesthesia plan was to use moderate sedation / analgesia (conscious sedation). Immediately prior to administration of medications, the patient was re-assessed for adequacy to receive sedatives. The heart rate, respiratory rate, oxygen saturations, blood pressure, adequacy of pulmonary ventilation, and response to care were monitored throughout the procedure. The physical status of the patient was re-assessed after the procedure. After I obtained informed consent, the scope was passed under direct vision. Throughout the procedure, the patient's blood pressure, pulse, and oxygen saturations were monitored continuously. The was introduced through the anus and advanced to the cecum, identified by appendiceal orifice and ileocecal valve. The colonoscopy was performed without difficulty. The patient tolerated the procedure well. The quality of the bowel preparation was good. Impression: - One 5 mm polyp in the sigmoid colon. Resected and retrieved. - The examination was otherwise normal on direct and retroflexion views. Findings: The perianal and digital rectal examinations were normal. Pertinent negatives include normal sphincter tone. A 5 mm polyp was found in the sigmoid colon. The polyp was sessile. The polyp was removed with a cold biopsy forceps. Resection and retrieval were complete. Verification of patient identification for the specimen was done. Estimated blood loss was minimal. The exam was otherwise without abnormality on direct and retroflexion views. _ Recommendation: - Discharge patient to home (ambulatory). - Continue present medications. - Repeat colonoscopy in 5 years for surveillance. - Return to primary care physician PRN. - Telephone my office for pathology results in 1 week. Procedure Code(s): --- Professional --- 26396, Colonoscopy, flexible; with biopsy, single or multiple --- Technical --- 88423, Colonoscopy, flexible; with biopsy, single or multiple Diagnosis Code(s): --- Professional --- Z12.11, Encounter for screening for malignant neoplasm of colon D12.5, Benign neoplasm of sigmoid colon --- Technical --- Z12.11, Encounter for screening for malignant neoplasm of colon D12.5, Benign neoplasm of sigmoid colon CPT copyright 2014 [employer]. All rights reserved. The codes documented in this report are preliminary and upon radiation oncology nurse review may be revised to meet current compliance requirements. Kal Peralta MD 08/27/2015 10:53:18 AM This report has been signed electronically. Number of Addenda: 0 Note Initiated On: 08/27/2015 10:25 AM [facility] END[facility] 08/27/2015 10:2 5 AM TOOL AND DIE MACHINIST Kal Peralta MD GI PROCEDURE ORDERABLES Edited Result - Final [facility] ENDOSCOPY from Last 3 Months or Most Recently Relevant to Health Maintenance Insurance [facility] [id number] Care Teams Ultimate Hoops Scoreboard Operator Relationship Specialty Start Date End Date Lesley Cagle MD PCP - General Family Medicine 08/25/15
--- OUTSIDE RECORDS SUMMARY | 2025-01-14 12:51 | XMS_ITS | Data Portability ---
Author Organization [facility] OFFICE Address [address] [place] [address] Care Team Providers Care Show Worker Name Role Phone PARIS BARILLAS Primary Care Provider [phone] Assessment No assessment recorded. Plan of Treatment Reminders Order Date Submit Date Provider Last Modified By Organization Details Last Modified Time Details Appointments None recorded. Lab None recorded. Referral None recorded. Procedures None recorded. Surgeries None recorded. Imaging None recorded. Medication Orders amlodipine 10 mg tablet 2019 020 EVAN [facility]00 011, [address] , [address], [id number], 0 03:34:49 losartan 50 mg tablet 2019 020 INTERFACE [facility]00 011, [address] , [address], [id number], 0 17:42:00 hydrochlor othiazide 25 mg tablet 2019 020 mzabad [facility]-00 011, [address] , Kishan [address] [place] [address], [id number], 0 11:54:39 losartan 50 mg tablet 2019 020 [facility]-00 011, [address] , [address], [id number], 0 19:34:00 Patient TargetsNo targets recorded. Patient InstructionsNo instructions recorded. Reason for Referral None Reported. Results Created Date Observation Date Name Description Value Unit Range Abnormal Flag Note LastModifiedBy Organization Detail LastModifiedTime 04/16/20 20 04/14/2020 panda jones am No observ ation record ed. [email or web address] Not Available 2019 11:36:17 06/23/20 20 06/13/2020 US, echoc ardio gram No observ ation record ed. [email or web address] Not Available 06/23 12:45:53 Result Notes None recorded. Problems Name Problem SNOMED Code Status Onset Date Resolution Date Notes Provider Name and Address Organization Details Recorded Time Essential hypertension 69462103 Active 2019 Miles Mesto [place], [place] - [facility] 0 13:36:03 Hyperlipidemia 75351638 Active 2019 [place] [facility] 0 13:36:03 Dementia 42924425 Active 2019 [place] [facility] 0 13:36:03 Seasonal allergy 970305699 Active 2019 Miles [place] [facility] 0 13:36:03 Shoulder pain 55878461 Active 2019 left Miles M[place] - [facility] 0 13:36:03 Gastroesophage al reflux disease without esophagitis 953307139 Active 2019 Miles [place] [facility] 0 13:36:03 Eczema 47113916 Active 2019 Miles [place] [facility] 0 13:36:03 Electrocardiog mendy abnormal 219149757 Active 2019 Miles Mesto [place] - [facility] 0 13:36:29 Problem Notes None recorded. Procedures Surgical History None recorded. Imaging Results Imaging Date Name Status LastModified by Organization Details LastModified Time 04/14/2020 electrocardiogram completed [email or web address] Informa tion not available 04/16/2020 11:36:17 06/13/2020 US, echocardiogram completed [email or web address] Inform ation not available 06/23/2020 12:45:53 Procedure Notes None recorded. Medical Equipment None Reported. Allergies Allergen ID Allergen Name Allergen Category Reaction Reaction Severity Criticality Documentation Date Start Date Code Code System Note Provider Name and Address Organization Details Recorded Time 20132 Librium medicatio n Not available Not available Not available 04/14/2020 3804 RxNorm Harini Chino [facility] 0 15:44:31 00136 lisinopri l medicatio n facial swelling moderate Not available 05/03/20202018 44590 RxNorm Ginger Farmer [facility] 0 13:35:46 Medications Name Sig Start Date Stop Date Status Note LastModified by Organization Details LastModified Time multivita min tablet active Not Available Not Available Not Available losartan 50 mg tablet TAKE 1 TABLET BY MOUTH DAILY active Not Available Not Available No t Available amoxicill in 500 mg capsule active Not Available Not Available Not Available atorvasta tin 40 mg tablet 1 tablet oncea day active Not Available Not Available No t Available metformin 500 mg tablet TAKE 1 TABLET BY MOUTH TWICE A DAY active Not Available Not Available No t Available clonidine HCl 0.1 mg tablet Take 1 tablet twice a day by oral route. 04/24 completed Pt is no more on thi medicati on 04/24/20 20 sm Not Available Not Available Not Available donepezil 5 mg tablet Take 1 tablet every day by oral route. active Not Available Not Available No t Available cetirizin e 10 mg tablet 1 tablet oncea day active Not Available Not Available No t Available ibuprofen 800 mg tablet active Not Available Not Available Not Available fluconazo le 150 mg tablet active Not Available Not Available Not Available gabapenti n 400 mg capsule active Not Available Not Available Not Available sertralin e 100 mg tablet Take 1.5 tablets every day by oral route. active Not Available Not Available No t Available Zithromax Z-John Paul 250 mg tablet TAKE 2 TABLETS (500 MG) BY ORAL ROUTE ONCE DAILY FOR 1 DAY THEN 1 TABLET (250 MG) BY ORAL ROUTE ONCE DAILY FOR 4 DAYS 11/25 completed Not Available Not Available Not Available hydralazi ne 25 mg tablet Take 1 tablet twice a day by oral route. 04/24 completed Pt is no more on this medicati on 04/24/20 20 sm Not Available Not Available Not Available amlodipin e 5 mg tablet Take 1 tablet every day by oral route. active Not Available Not Available No t Available aspirin 81 mg tablet,de layed release Take 1 tablet every day by oral route. active Not Available Not Available No t Available triamcino lone acetonide 0.1 % topical cream APPLY A THIN LAYER TO THE AFFECTED AREA(S) BY TOPICAL ROUTE 2 TIMES PER DAY 2019 active Not Available Not Available Not Avai lable carbamaze pine 200 mg tablet active Not Available Not Available No t Available amlodipin e 10 mg tablet Take 1 tablet every day by oral route. active Not Available Not Available No t Available promethaz ine 25 mg tablet active Not Available Not Available Not Available betametha sone dipropion ate 0.05 % topical cream APPLY A THIN LAYER TO THE AFFECTED AREA(S) BY TOPICAL ROUTE TWICE A DAY 11/04 completed Not Available Not Available Not Available omeprazol e 20 mg capsule,d elayed release Take 1 capsule every day by oral route in the morning for 30 days. active Not Available Not Available No t Available folic acid 1 mg tablet active Not Available Not Available Not Available hydralazi ne 50 mg tablet active Not Available Not Available Not Available alcohol swabs active Not Available Not Available Not Available hydrochlo rothiazid e 25 mg tablet Take 1 tablet every day by oral route. 06/20 completed Not Available Not Available Not Available mirtazapi ne 15 mg tablet Take 1 tablet every day by oral route at bedtime. active Not Available Not Available No t Available fluticaso ne propionat e 50 mcg/actua tion nasal spray,peri pension active Not Available Not Available Not Available sertralin e 50 mg tablet active Not Available Not Available Not Available metoclopr amide 10 mg tablet active Not Available Not Available No t Available hydroxyzi ne pamoate 25 mg capsule active Not Available Not Available Not Available Tylenol 650 mg tablet,ex tended release Take 2 tablets every 8 hours by oral route as needed. active Not Available Not Available No t Available Mapap Arthritis Pain 650 mg tablet,ex tended release Take 2 tablets every 8 hours by oral route with meals for 30 days. active Not Available Not Available No t Available azithromy clyde 500 mg tablet 11/04 completed Not Available Not Available Not Available Fish Oil 1000 capsule daily active Not Available Not Available No t Available triamcino lone (bulk) 0.1 % cream prn active Not Available Not Available No t Available Fish Oil 340 mg-1,000 mg capsule active Not Available Not Available Not Available peg 3350 240 gram-elec trolytes 22.72 gram-6.72 g-5.84 g powdr for soln Beginnin g at 5:00 PM the night before the colonosc opy, drink 8 ounces every 15 minutes until gone. active Not Available Not Available No t Available omeprazol e 20 mg tablet,de layed release Take 1 tablet every day by oral route. active Not Available Not Available No t Available GaviLyte- G 236 gram-22.7 4 gram-6.74 gram-5.86 gram oral solution active Not Available Not Available Not Available OneTouch Verio test strips active Not Available Not Available Not Available OneTouch Verio Flex Meter active Not Available Not Available Not Available Sea-Lawn 200 mg-300 mg-100 mg-1,000 mg capsule active Not Available Not Available Not Available OneTouch Delica Plus Lancet 33 gauge active Not Available Not Available Not Available Vitals Date Recorded Body height Body mass index (BMI) Body weight Heart rate Respiratory rate Oxygen saturation Oxygen saturation in Arterial blood by Pulse oximetry Systolic blood pressure Diastolic blood pressure Provider Name and Address Organization Details Last Updated DateTime 0 165.1 cm 34.4 kg/m2 49235.6 2 g 67 /min 18 /min 98 % 98 % 130 mm[Hg] 90 mm[Hg] Harini Chino [facility] 0 15:44:20 Date Recorded Body height Body mass index (BMI) Body weight Heart rate Respiratory rate Oxygen saturation Oxygen saturation in Arterial blood by Pulse oximetry Systolic blood pressure Diastolic blood pressure Provider Name and Address Organization Details Last Updated DateTime 0 165.1 cm 32.6 kg/m2 93851.1 g 68 /min 18 /min 98 % 98 % 130 mm[Hg] 90 mm[Hg] Katty Huang [facility] 0 14:37:45 Date Recorded Body height Body mass index (BMI) Body weight Heart rate Respiratory rate Oxygen saturation Oxygen saturation in Arterial blood by Pulse oximetry Systolic blood pressure Diastolic blood pressure Provider Name and Address Organization Details Last Updated DateTime 0 165.1 cm 33.3 kg/m2 90241.4 7 g 67 /min 18 /min 98 % 98 % 140 mm[Hg] 94 mm[Hg] Katty Huang [facility] 0 11:46:21 Social History Question Answer Notes LastModified by Organizat ion Details LastModified Time Tobacco Smoking Status Former Smoker Harini Chino [facility] 04/14/2020 15:37:36 What Is Your Level Of Alcohol Consumption? None [email or web address] Information not available 04/14/2020 What Is Your Level Of Caffeine Consumption? Occasional [email or web address] Information not available 04/14/2020 How Much Tobacco Do You Chew? None [email or web address] Information not available 04/14/2020 What Type Of Diet Are You Following? REGULAR [email or web address] Information not available 04/14/2020 Which Illicit Or Recreational Drugs Have You Used? History Of Crack Cocain Use 6 Years Ago [email or web address] Information not available 04/14/2020 Do You Or Have You Ever Used E-cigarettes Or Vape? Never Used Electronic Cigarettes [email or web address] Information not available 04/14/2020 Marital Status Single [email or web address] Informatio n not available 04/14/2020 How Many Children Do You Have? 0 [email or web address] Information not available 04/14/2020 Do You Or Have You Ever Used Smokeless Tobacco? Never Used Smokeless Tobacco [email or web address] Information not available 04/14/2020 How Much Tobacco Do You Smoke? 1 PPW [email or web address] Information not available 04/14/2020 How Many Years Have You Smoked Tobacco? 30 [email or web address] Information not available 04/14/2020 Sex: Unknown Functional Status Question Answer Note LastModified by Organization D etails LastModified Time What is your exercise level? None [email or web address] Information not available 04/14/2020 Mental Status None recorded. Family History Relationship Description Onset Age of this Age Resolved Age Notes LastModified by Organization Details LastModified Time Father No current problems or disability heart diseas e [email or web address] Not available 04/14/2020 15:49:47 Mother No current problems or disability [email or web address] Not available 03/27 15:49:41 Medical History Condition Response Hyperlipidemia Y GERD/Reflux Y High Cholesterol Y Hypertension Y Past Encounters Encounter ID Performer Location Encounter Start Date Encounter Closed Date Diagnosis/Indication Diagnosis SNOMED-CT Code Diagnosis ICD10 Code Diagnosis Note [id number] Nnamdi Choe [place] OFFICE [address] [place] [address] 04/14/2020 15:22:03 04/14/2020 19:33:18 Essential hypertension 06104862 I10 Will stop clonidine and hydralazin e as both are not first line BP medication s.start HCTZ 25 mg dailyStart Losartan 50 mg dailyConti nue Amlodipine Check 2D echocardio gram Hyperlipidemia 38658820 E78.5 Continue Atorvastat in Dementia 71537616 F03.90 ON donepezil. Consider neurology evaluation for reversible causes as he is too young to carry this diagnosis. Electrocar diogram abnormal 052712290 R94.31 right axis deviation. Check 2D echo [id number] Nnamdi Espinosa Office [address] [place] [address] 04/24/2020 14:20:09 04/24/2020 15:24:46 Essential hypertension 24481974 I10 He is dizzy since started on HCTZ and Losartan. + orthostati c BP changes today.Will d/c HCTZ. encouraged increase fluid intakeCont inue Losartan 50 mg dailyConti nue Amlodipine Follow 2D echo Hyperlipidemia 95690759 E78.5 Continue Atorvastat in Dementia 47499498 F03.90 ON donepezil. Consider neurology evaluation for reversible causes as he is too young to carry this diagnosis. Electrocar diogram abnormal 767935778 R94.31 right axis deviation. Check 2D echo Dizziness 668577770 R42 [id number] Nnamdi Espinosa Office [address] [place] [address] 06/20/2020 11:40:23 06/20/2020 12:04:11 Essential hypertension 74777303 I10 Need better controlInc rease amlodipine to 10 mg dailyConti nue Losartan 50 mg dailyHe did not tolerate HCTZ that caused him to have orthostati c dizziness Hyperlipidemia 01172255 E78.5 Continue Atorvastat in Dementia 88652056 F03.90 ON donepezil. Consider neurology evaluation for reversible causes as he is too young to carry this diagnosis. Electrocar diogram abnormal 230957827 R94.31 right axis deviation. 2D echo with MVP otherwise normal Dizziness 186047842 R42 Health Concerns Section Related Observation LastModified by Organization Detai ls LastModified Time None Recorded Concern Status LastModified by Organization Details LastModified Time None Recorded Advance Directives Directive None Recorded Payers Encounter Date Sequence Insurance Name Policy Number Policy Hamm Covered Member ID Hamm Member ID Guarantor Name 04/14/2020 1 [facility] (MEDICA[facility]) [id number] [place] [employer] [id number] [facility] 04/24/2020 1 [facility] (MEDICAID HMO) [id number] [place] [id number] [facility]/2020 1 [facility] (MEDICAID HMO) [id number] [place] [employer] [id number] [facility] Board Notes Date Note Type Note Provider Name and Address Organization Details Recorded Time 04/14/2020 text/html 59 year-old man with history of HTN and HLD presents for cardiac consultation He has early onset dementia and resides already in assisted living. His BP has been difficult to control. Hydralazine was added recently to his regimen. He was referred for BP management. No chest pain. Denies shortness of breath at rest. Denies dyspnea on exertion. No orthopnea. No PNDs. Denies heart palpitations. Denies dizziness. Denies syncope. No near syncope. No ankle or leg edema. No major bleeding events. No reported side effects from medications. Taking medications as prescribed with no missed doses. Patient has history of smoking for 30 years pt quit in 1999.Father has history of heart disease otherwise unknown. Nnamdi Choe [place], [place] - [facility] 04/14/2020 19:33:16 04/24/2020 text/html 04/24/20 59 year-old man with history of HTN and HLD presents for cardiac consultation for HTN He was seen recently and his antihypertensives were adjusted. He was taken off Hydralazine and Clonidine. Was started on HCTZ and Losartan. He has been dizzy since those changes and returns for follow up. Orthostatic BP check in the office today is positive. He has early onset dementia and resides already in assisted living. His BP has been difficult to control. Hydralazine was added recently to his regimen. He was referred for BP management. No chest pain. Denies shortness of breath at rest. Denies dyspnea on exertion. No orthopnea. No PNDs. Denies heart palpitations. Denies dizziness. Denies syncope. No near syncope. No ankle or leg edema. No major bleeding events. No reported side effects from medications. Taking medications as prescribed with no missed doses. Patient has history of smoking for 30 years pt quit in 1999.Father has history of heart disease otherwise unknown. Results from this visit, or from the past:04/14/20 EKG: Sinus rhythm. P: normal. QRS: extreme right superior axis deviation. Probable septal infarct. ST-T: normal. Conclusion: abnormal EKG Nnamdi Choe [facility] 04/24/2020 17:41:27 06/20/2020 text/html 04/24/20 59 year-old man with history of HTN and HLD presents for cardiac consultation for HTN During last visit he was dizzy with positive orthostatic BP changes. He was taken off HCTZ and feels much better since. His BP is borderline elevated today. He denies chest pain or dyspnea. Previously,He was taken off Hydralazine and Clonidine. Was started on HCTZ and Losartan. He has been dizzy since started taking HCTZ. . He has early onset dementia and resides already in assisted living. . He was referred for BP management. No chest pain. Denies shortness of breath at rest. Denies dyspnea on exertion. No orthopnea. No PNDs. Denies heart palpitations. Denies dizziness. Denies syncope. No near syncope. No ankle or leg edema. No major bleeding events. No reported side effects from medications. Taking medications as prescribed with no missed doses. Patient has history of smoking for 30 years pt quit in 1999.Father has history of heart disease otherwise unknown. Results from this visit, or from the past:04/14/20 EKG: Sinus rhythm. P: normal. QRS: extreme right superior axis deviation. Probable septal infarct. ST-T: normal. Conclusion: abnormal EKG Nnamdi Choe [facility] 06/20/2020 12:04:37
--- OUTSIDE RECORDS SUMMARY | 2025-01-14 12:51 | XMS_ITS | Continuity of Care Document ---
Author Organization [facility] Address [address] [place] [address] Phone Care Team Providers Care Oenologist Name Role Phone Pablo Jimenez MD Unavailable Unavailable Allergies, Adverse Reactions, Alerts Substance Reaction Status Criticality No Known Allergies Active No Inform ation Medications Medication Instructions Dosage Effective Dates (start - stop) Status Comments metformin ER 500 mg tablet,extended release 24hr (osmotic) take 2 Tablet by oral route every day with the evening meal 1000 MG - Active Protonix 40 mg tablet,delayed release take 1 tablet by oral route every day 40 MG - Active Crestor 40 mg tablet take 1 tablet by oral route every day 40 MG - Active glimepiride 1 mg tablet take 1 tablet by oral route every day 1 MG - Active donepezil 5 mg tablet take 1 tablet by oral route every day in the evening 5 MG - Active irbesartan 300 mg-hydrochlorothiaz violetta 12.5 mg tablet take 1 tablet by oral route every day 1.00 tablet - Active Norvasc 10 mg tablet take 1 tablet by oral route every day 10 MG - Active Remeron 30 mg tablet take 1 tablet by oral route every day before bedtime 30 MG - Active Zoloft 100 mg tablet take 1 tablet by oral route every day 100 MG - Active Ventolin HFA 90 mcg/actuation aerosol inhaler inhale 1 puff by inhalation route every 4 - 6 hours as needed as needed 1 puff - Active PRN for sob Aspirin Childrens 81 mg chewable tablet chew 1 tablet by oral route every day 81 MG - Active Procedures Procedure Date OFFICE/OUTPATIENT VISIT, EST OFFICE/OUTPATIENT VISIT, EST OFFICE/OUTPATIENT VISIT, EST OFFICE/OUTPATIENT VISIT, EST OFFICE/OUTPATIENT VISIT, EST OFFICE/OUTPATIENT VISIT, EST PREV VISIT, EST, AGE 40-64 OFFICE/OUTPATIENT VISIT, EST OFFICE/OUTPATIENT VISIT, EST OFFICE/OUTPATIENT VISIT, EST OFFICE/OUTPATIENT VISIT, EST OFFICE/OUTPATIENT VISIT, EST OFFICE/OUTPATIENT VISIT, EST OFFICE/OUTPATIENT VISIT, EST OFFICE/OUTPATIENT VISIT, EST OFFICE/OUTPATIENT VISIT, EST OFFICE/OUTPATIENT VISIT, EST OFFICE/OUTPATIENT VISIT, EST OFFICE/OUTPATIENT VISIT, EST PREV VISIT, NEW, AGE 40-64 OFFICE/OUTPATIENT VISIT, NEW Advance Directives Directive Yes / No Effective Date File Name No Information Encounters Encounter Description Practice Location Reason(s) For Visit Diagnoses Date Provider Providers Copied on Encounter OFFICE/OUTPA TIENT VISIT, EST [facility], [address] [place], [place], [address], tel:[phone] [facility] GERD1 (chief complaint) DM (chief complaint) HLP (chief complaint) memory loss1 (chief complaint) GERD w/o esophagitisMixed hyperlipidemiaType 2 diabetes mellitus with diabetic nephropathyMemory loss 4 Tony King [address] [place], [place], [address] , [place]. tel:[phone] [facility], [address] [place], [address], tel:[phone] [facility] No Information 4 Tony King [address] [place], [address] , [place]. tel:[phone] OFFICE/OUTPA TIENT VISIT, [facility], [place], [address], [place], [place], [address], [place] tel:[phone] [facility] anxiety1 (chief complaint) DM (chief complaint) GERD1 (chief complaint) HLP (chief complaint) HTN (chief complaint) dementia1 (chief complaint) Mixed hyperlipidemiaType 2 diabetes mellitus with diabetic nephropathyGERD w/o esophagitisEssentia l (primary) hypertensionGeneral ized Anxiety DisorderMemory loss Eren- 4 Jimenez Pablo. [address], [place], [place], [address] , [place]. [phone] OFFICE/OUTPA TIENT VISIT, [facility], [place], [address], [place], [place], [address], [place] tel:[phone] [facility] UTI1 (chief complaint) DM (chief complaint) HLP (chief complaint) weight gain1 (chief complaint) Mixed hyperlipidemiaType 2 diabetes mellitus with diabetic nephropathyMemory lossAbnormal weight gainBPH w/ lower urinary tract symptom Nov- 4 Jimenez Pablo. [address], [place], [place], [address] , [place]. [phone] OFFICE/OUTPA TIENT VISIT, [facility], [place], [address] [place], [address], [place] tel:[phone] [facility] UT1 (chief complaint) Acute cystitis without hematuria 4 Jimenez Pablo. [address], [place], [place], [address] , [place]. [phone] OFFICE/OUTPA TIENT VISIT, [facility], [place], [address], [place], [place], [address], [place] tel:[phone] [facility] DM (chief complaint) HLP (chief complaint) GERD1 (chief complaint) memory loss1 (chief complaint) sleep apnea1 (chief complaint) weight gain1 (chief complaint) Mixed hyperlipidemiaType 2 diabetes mellitus with diabetic nephropathyMemory lossGERD w/o esophagitisBPH w/ lower urinary tract symptomObstructive Sleep Apnea HypopneaImpacted cerumen, bilateral Dec- 3 Tony Shah. [address], [place], [place], [address] , [place]. [phone] OFFICE/OUTPA TIENT VISIT, EST [facility], [address], [place], [place], [address], [place] tel:[phone] [facility] memory loss1 (chief complaint) BPH1 (chief complaint) DM (chief complaint) sleep apnea1 (chief complaint) skin (chief complaint) Memory lossPrimary central sleep apneaBPH w/ lower urinary tract symptomType 2 diabetes mellitus with diabetic nephropathyOther hypertrophic disorders of the skin May- 3 Tony King [address], [place], [place], [address] , [place]. [phone] PREV VISIT, EST, AGE 40-64 [facility], [address], [place], [place], [address], [place] tel:[phone] [facility] physical (chief complaint) Encounter for general adult medical exam w abnormal findingsMixed hyperlipidemiaPrima ry central sleep apneaType 2 diabetes mellitus with diabetic nephropathyEssentia l (primary) hypertensionGERD w/o esophagitisMemory loss Eren- 3 Tony King [address], [place], [place], [address] , [place]. tel:[phone] OFFICE/OUTPA TIENT VISIT, EST [facility], [address], [place], [place], [address], [place] tel:[phone] [facility] DM (chief complaint) HLP (chief complaint) insomnia1 (chief complaint) anxiety1 (chief complaint) Mixed hyperlipidemiaType 2 diabetes mellitus with diabetic nephropathyPrimary insomniaGeneralized Anxiety DisorderPrimary central sleep apnea Dec- 3 Tony King [address], [place], [place], [address] , [place]. [phone] OFFICE/OUTPA TIENT VISIT, [facility], [place], [address], [place], [place], [address], [place] tel:[phone] [facility] HTN (chief complaint) HLP (chief complaint) DM (chief complaint) Mixed hyperlipidemiaEssen tial (primary) hypertensionPrimary central sleep apneaType 2 diabetes mellitus with diabetic nephropathy 3 Tony Shah. [address], [place], [place], [address] , [place]. tel:[phone] OFFICE/OUTPA TIENT VISIT, [facility], [place], [address], [place], [place], [address], [place] tel:[phone] [facility] HLP (chief complaint) HTN (chief complaint) GERD1 (chief complaint) sob1 (chief complaint) GERD w/o esophagitisMixed hyperlipidemiaEssen tial (primary) hypertensionMild intermittent asthma, uncomplicated 2 Tony Shah. [address], [place], [place], [address] , [place]. tel:[phone] OFFICE/OUTPA TIENT VISIT, [facility], [place], [address], [place], [place], [address], [place] tel:[phone] [facility] HTN (chief complaint) DM (chief complaint) HLP (chief complaint) sleep apnea1 (chief complaint) Primary central sleep apneaEssential (primary) hypertensionType 2 diabetes mellitus with diabetic nephropathyMixed hyperlipidemia 2 Tony Shah. [address], [place], [place], [address] , [place]. tel:[phone] OFFICE/OUTPA TIENT VISIT, [facility], [place], [address], [place], [place], [address], [place] tel:[phone] [facility] HTN (chief complaint) sleep apnea1 (chief complaint) sob (chief complaint) urethra stricture1 (chief complaint) Primary central sleep apneaPeriodic limb movement disorderEssential (primary) hypertensionBPH w/ lower urinary tract symptomDyspnea 2 Tony Shah. [address], [place], [place], [address] , [place]. tel:[phone] OFFICE/OUTPA TIENT VISIT, [facility], [place], [address] [place], [address], [place] tel:[phone] [facility] HTN (chief complaint) sleep apnea1 (chief complaint) toothache1 (chief complaint) Essential (primary) hypertensionAtypica l facial pain 2 Tony Shah. [address], [place], [place], [address] , [place]. tel:[phone] OFFICE/OUTPA TIENT VISIT, [facility], [place], [address] [place], [address], [place] tel:[phone] [facility] HTN (chief complaint) sleep apnea1 (chief complaint) Essential (primary) hypertensionPrimary central sleep apnea 2 Tony Shah. [address], [place], [place], [address] , [place]. tel:[phone] OFFICE/OUTPA TIENT VISIT, [facility], [place], [address] [place], [address], [place] tel:[phone] [facility] GERD1 (chief complaint) HTN (chief complaint) BPH 1 (chief complaint) anxiety1 (chief complaint) DM (chief complaint) HLP (chief complaint) Type 2 diabetes mellitus without complicationsMixed hyperlipidemiaBPH w/ lower urinary tract symptomEssential (primary) hypertensionMemory lossSleep apneaDysphagiaGener alized Anxiety DisorderPolyp of colon 2 Tony Shah. [address], [place], [place], [address] , [place]. tel:[phone] OFFICE/OUTPA TIENT VISIT, [facility], [place], [address], [place], [place], [address], [place] tel:[phone] [facility] anxiety1 (chief complaint) BPH1 (chief complaint) BPH w/o lower urinary tract symptomGeneralized Anxiety Disorder 2 Tony King [address], [place], [place], [address] , [place]. tel:[phone] OFFICE/OUTPA TIENT VISIT, [facility], [place], [address] [place], [place], [address], [place] tel:[phone] [facility] HTN (chief complaint) urine1 (chief complaint) sleep1 (chief complaint) shoulder pain1 (chief complaint) dysphgia1 (chief complaint) Essential (primary) hypertensionSleep apneaBPH w/ lower urinary tract symptomDysphagiaPai n in left shoulder Dec- 2 Tony Shah. [address], [place], [place], [address] , [place]. [phone] OFFICE/OUTPA TIENT VISIT, [facility], [place], [address] [place], [address], [place] tel:[phone] [facility] HLP (chief complaint) DM (chief complaint) urine retention1 (chief complaint) HTN (chief complaint) memory loss1 (chief complaint) Essential (primary) hypertensionHyperli pidemiaType 2 diabetes mellitus without complicationsRetent ion of urine, unspecifiedProteinu riaAnemiaMemory loss Nov-2 2 Tony Shah. [address], [place], [place], [address] , [place]. [phone] PREV VISIT, NEW, AGE 40-64 [facility], [address] [place], [place], [address], [place] [phone] [facility] memory1 (chief complaint) choking1 (chief complaint) Essential (primary) hypertensionDysphag iaAbnormalities of gaitMemory lossType 2 diabetes mellitus without complicationsHyperl ipidemiaEncounter for general adult medical exam w abnormal findingsGeneralized Anxiety Disorder Mar-0 2 Tony Shah. [address], [place], [place], [address] , [place]. [phone] Family History Family Member Type Diagnosis Age At Onset Sister Problem breast CA Father Problem of 57 heart disease Mother Problem Diabetes mellitus Brother Problem Alive and well Payers Payer name Insurance type Covered libertarian ID Authorarthur clay(s) No Information Social History Type Description Quantity Date Captured Comments Alcohol Use Details No Caffeine Use Details Unknown Tobacco Use Status Current non-smoker Smoking Status Never smoker Sex Male Vital Signs Date / Time: Height Weight BMI Pulse Rate Blood Pressure Temperature Respiratory Rate Body Surface Area Head Circumference BMI percentile Pulse Ox Inhaled Ox 11:02 AM 64.00 in 225.00 lbs 38.6 2 kg/m eter (2) 80 /min 126/72 mm[Hg] 98.0 F 16 /min Chief Complaint And Reason For Visit From encounter dated '06/11/2024 10:51'. GERD1 (chief complaint). Description: Pt has chronic GERD Pt takes protonix and doing ok Pt needs protonix refilled DM (chief complaint). Description: Pt has DM >Pt takes metformin and amaryl. Pt states thathis glucose is around 120s. Pt denies any polyuria, polydipsia HLP (chief complaint). Description: Pt has HLP. Pt takes crestor .Pt denies any myalgia. his lipid profile is ok memory loss1 (chief complaint). Description: Pt has chronic memory loss. Pt has ? history of TBI. Pt is seeing memory progressive care unit registered nurse now Pt is on aricept Plan Of Treatment Date Type Action Status Referral Ordered: Otolaryngology (related to Impacted cerumen, bilateral) ordered Referral Referred To: Yvonne GUSMAN, [address], [place], [id number] Ordered: Referrals: León Russell MD. Evaluate and treat ordered Referral Ordered: Neurosurgery (related to Memory loss) ordered Referral Ordered: Referrals: Neurosurgery. Evaluate and treat ordered Referral Ordered: SLEEP STUDY, ATTENDED ordered Referral Referred To: Reymundo Wilkerson [address] [facility] [address] [place] [address], [phone] Ordered: Referrals: Reymundo Wilkerson. Evaluate and treat ordered Referral Ordered: Jorge Robles -[facility] : Psychiatry & Neurology : Neurology (related to Memory loss) ordered Referral Ordered: Jorge Robles -Urology (related to Retention of urine, unspecified) ordered Referral Referred To: Jorge Robles [address] [place], [place], [id number] Ordered: Referrals: Urology. Jorge Robles. Evaluate and treat ordered Referral Referred To: Jorge Robles [address] [place], [place], [id number] Ordered: Referrals: Allopathic & Osteopathic Physicians : Psychiatry & Neurology : Neurology. Jorge Robles. Evaluate and treat ordered Referral Ordered: Otolaryngology (related to Dysphagia) ordered Referral Ordered: COLONOSCOPY AND BIOPSY ordered Referral Ordered: Referrals: Otolaryngology. Evaluate and treat ordered Referral Ordered: MRI BRAIN W/O & W/DYE ordered Appointment Boardstephen, Jonathan BOOKED Appointment Boardstephen, Jonathan BOOKED History Of Present Illness Encounter Date Complaint History Of Prese nt Illness GERD1 Pt has chronic G ERD Pt takes protonix and doing ok Pt needs protonix refilled DM Pt has DM >Pt ta kes metformin and amaryl. Pt states that his glucose is around 120s. Pt denies any polyuria, polydipsia HLP Pt has HLP. Pt t tayla crestor .Pt denies any myalgia. his lipid profile is ok memory loss1 Pt has chronic m jose loss. Pt has ? history of TBI. Pt is seeing memory progressive care unit registered nurse now Pt is on aricept anxiety1 Pt has chronic a nxiety and depression Pt takes zoloft and remeron and doing ok Pt denies any suicidal or homicidal thought Pt denies any crying spells DM Pt has DM Pt tiffanie es metformin, amaryl and his glucose is around 130s Pt denies any polyuria, polydipsia. GERD1 Pt has chronic G ERD. Pt doing ok with protonix Pt failed pepcid Pt denies any abd pain HLP Pt has HLP Pt ta anushka crestor Pt denies any myalgia HTN Pt has HTN, Pt t akes irbesartan/hctz and norvasc and his bp is stable. dementia1 Pt has chronic d ementia Pt takes aricept Pt missed his bryant with memory progressive care unit registered nurse. Pt will reschedule. UTI1 Pt has history o f UTI recently Pt denies any urinary symptoms Pt is seeing urology and he was treated with oral abx. Pt also underwent cystoscope by urology which was normal per patient .Pt denies any urinary symptoms DM Pt has DM Pt tiffanie es metformin and amaryl but he missed medication dose frequently. His A1c is getting worse .Pt denies any polyuria, polydipsia weight gain1 Pt has been very sedentary and he keeps gaining weight HLP Pt has HLP Pt stephen reveles crestor. His lipid profile is not at goal. Pt denies any myalgia ,Pt is noncompliant with crestor and he misses a lot of doses. UT1 Pt c/o urinary u rgency burning and dysuria and frequency for 10 days. Pt has UTI on UA .Pt states that his urologist started him on bactrim 7 days ago. Pt states that he is feeling better now without any UTI symptoms Pt denies any fever, chill, nausea, vomiting, abd pain, flank pain DM Pt has DM. Pt ta kes metformin and amaryl and his glucose is around 120s .Pt denies any polyuria, polydipsia. Pt denies any neuropathy symptoms. HLP Pt has HLP Pt ta anushka crestor. Pt denies any myalgia GERD1 Pt has chronic G ERD Pt takes protonix and doing ok Pt failed pepcid Pt has daily GERD without protonix memory loss1 Pt has memory lo ss and early signs of dementia Pt takes donezepil daily Pt denies any headache. 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 Pt still has not set up cpap yet. [facility] informed us that they can not reach patient. Patient never contacted [facility] for cpap set up. Pt c/o bilateral hearing loss .Pt denies any ear pain. weight gain1 Pt has been gain ing weight. Pt is very physically inactive. memory loss1 Pt has memory lo ss and early signs of dementia Pt takes donezepil daily Pt denies any headache. Pt wants to see memory specialist BPH Pt has BPH with LUTS. Pt has history of urethra stricture s/p dilation Pt denies any dysuria, or burning or frequency Pt does have some slow stream. DM Pt has DM. Pt ta kes metformin and amaryl. pt denies any polyuria, polydipsia Pt has not done lab yet. Pt states that his glucose is around 120s skin Pt notices some skin irritation and lesion around left axillary area for several months Pt denies any bleeding. Pt denies any scab sleep apnea1 Pt has sleep search engine optimization consultant ea.. Pt is very noncompliant with cpap. Pt was set up for CPAP many times but he never answered his phone call for [facility] to try to set him up. physical Pt needs annual physical pt has chronic anxiety and depression Pt takes zoloft but he has not been taking remeron Pt feels more depressed lately. Pt denies any suicidal or homicidal thought Pt denies any crying spells Pt has chronic GERD Pt takes protonix and doing ok Pt has HTN Pt takes irbesartan/hctz and norvasc and his bp is ok. Pt has DM Pt takes metformin and amaryl and his glucose is around 140s Pt has HLP Pt takes crestor Pt denies any myalgia. Pt has dementia with memory loss Pt takes donepezil and his memory is getting worse Pt also feels chronic fatigue. insomnia1 Pt take remeron 15 qhs but is not working anymore Pt also has sleep apnea Pt has not set up cpap yet. Pt states that remeron does help his mood in addition to zoloft DM Pt has DM Pt tiffanie es metformin and amaryl and his glucose and a1c are improving. pt denies any neuropathy. Pt denies any hypoglycemia HLP Pt has HLP Pt ta kes crestor 40 mg and his lipid profile is ok Pt has mildly high Tg Pt denies any myalgia anxiety1 Pt has chronic a nxiety and depression .pt takes zoloft and remeron and he is doing well. Pt denies any suicidal or homicidal thought Pt denies any crying spells HTN Pt has HTn pt ta kes norvasc and irbesartan/hctz and his bp is ok HLP Pt has HLP Pt ta kes crestor but his lipid profile is still high Pt denies any myalgia DM Pt has DM Pt tiffanie es metformin 1000 mg daily. his glucose and A1c is getting worse. His glucose is around 120 at home. Pt denies any polyuria polydipsia sob1 Pt c/o intermitt ent wheezing with sob. Pt denies any chest pain or exertional sob. pt feels sob 1-2 times per week and he uses albuterol which works well. Pt denies any night time wheezing or sob. GERD1 Pt has HH and ga stritis. Pt doing ok with protonix. Pt failed omeprazole and pepcid. Pt has daily GERD without protonix Pt needs refill Pt denies any abd pain, early satiety, nausea, vomiting, weight loss, etc. HTN Pt has HTN ,Pt t akes irbesartan/hctz and norvasc 10 mg daily and his bp at home is around 120/80s Pt denies any edema or chest pain or sob or dizziness. HLP Pt has HLP Pt ta kes crestor and he tolerates it well. Pt denies any myalgia HLP Pt has HLP Pt ta kes lipitor .Pt denies any myalgia His lipid profile is still high despite taking lipitor. Pt denies any myalgia DM Pt has DM. Pt ta kes metformin 500 mg but he only takes once per day instead of BID. He states that he keeps forgetting the 2nd dose Pt also does not want to check his blood glucose. His A1c is getting worse, pt denies any polyuria, polydipsia. HTN Pt has HTN Pt ta kes irbesartan/hctz and norvasc and his bp is still borderline high. Pt denies any chest pain or headache sleep apnea1 Pt has sleep search engine optimization consultant ea Pt feels fatigue. Pt has not set up cpap yet with [facility]. Pt did receive a call from [facility] but he has not returned the call to set up cpap yet urethra stricture1 pt has urethr a stricture due ot scarring. Pt saw urology and had it fixed and he is urinating ok now. sob Pt states that h e feels sob sometimes, with mild wheezing Pt denies any cough or chest pain .Pt wants inhaler HTN Pt has HTN. Pt t akes irbesartan/hctz and norvasc and his bp improved. His bp is around 130/80 at home. Pt denies any chest pain or headache Pt feels better sleep apnea1 Pt feels chronic ally fatigue with snoring. Pt had sleep study done which showed moderate sleep apnea with limb movement disorder. toothache1 Pt has toothache and he has bryant with dentist next week. Pt denies any facial swelling. or headache HTN Pt has HTN Pt ta kes irbesartan and his bp is still high Pt denies any chest pain or headache. sleep apnea1 Pt has in lab sl eep study scheduled for June. Pt does snore sleep apnea1 Pt feels very fa tigue and he snores. he has history of sleep apnea but he never used cpap in the past. Pt does not want to do home sleep study. he wants to do in lab study. HTN Pt has HTn Pt puga s been taking losartan 100 mg and his bp is still high. Pt denies any chest pain or headache. His bp is around 155/100 at home. He denies any chest pain or headache GERD1 Pt has chronic G ERD with mild dysphagia. Pt was evaluated by ENT and he had EGD done which showed GERD. Pt takes omeprazole and he still feels mild dysphagia. Pt denies any abd pain HTN Pt takes losarta n and his bp is borderline. BPH 1 Pt was evaluated by urology and he has some urethra blockage due to scarring and he had surgical procedure to repair that and he is doing ok now. His prostate was ok per urology per patient. he denies any urinary symptoms and he is off flomax anxiety1 Pt has chronic a nxiety and depression. Pt takes zoloft and remeron and doing ok Pt denies any suicidal or homicidal thought Pt denies any crying spells. Pt takes donezepil and his memory and mental status is ok DM Pt has DM> pt ta kes metformin and his glucose is around 120s .Pt denies any polyuria polydipsia HLP Pt has been taki ng lipitor daily pt denies any myalgia anxiety1 Pt has chronic a nxiety and depression Pt takes zoloft and remeron and doing ok. Pt denies any suicidal or homicidal thought Pt denies any crying spells. BPH1 Pt has BPH witho ut LUTS. Pt saw urology and he had prostate exam and was told ok. he is off flomax. He states that he no longer has any urinary symptoms. Pt denies any difficulty with urination, urinary frequency and urgency. dysphgia1 Pt has some dysp hagia and he feels choking sensation when he eats solid and drink liquid also. pt coughs after food. Pt denies any weight loss. Pt denies any sore throat. Pt has GERD and he takes omeprazole daily which works ok Pt denies any weight loss HTN Pt takes norvasc , hydralazine and losartan and his bp is borderline high Pt wants to cut down some meds. His bp has been around 150/100 without any medication and he just started to take above meds and his bp is slightly better around 140s. He denies any chest pain or headache or sob or edema sleep1 Pt snores loudly and he stop breathing sometimes per mom Pt feels fatigue. urine1 pt has some diff iculty with urination and slow stream and he is doing better with flomax. Pt is having normal UO now. Pt has not heard from urology yet shoulder pain1 Pt c/o left shou lder pain for one year Pt denies any injury Pt has sharp pain left shoulder with movement Pt denies any radiculopathy Pt denies any neck pain .Pt denies any left arm weakness or paresthesia urine retention1 Pt has difficul ty urinate last week and he went to ER and ER tried to put the urethral catheter but unable to do so due to ? prostate enlargement Pt was given flomax and he started it and he is able to urinate ok now. Pt denies any dysuria, burning and frequency or urgency. His PSA is normal. He denies any urinary symptoms in the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
== END 2025-01-14 10:49 | disposition home or self-care (01) ==
PROVIDERS: PCP Emergency Medicine; Visit Provider Psychiatry & Neurology Neurology
DX: I67.82 Cerebral ischemia (principal); G31.9 Degenerative disease of nervous system, unspecified; F03.90 Unspecified dementia, unspecified severity, without behavioral disturbance, psychotic disturbance, mood disturbance, and anxiety; F10.21 Alcohol dependence, in remission; E11.9 Type 2 diabetes mellitus without complications; Z87.828 Personal history of other (healed) physical injury and trauma
CPT/HCPCS: 70551